=== PATIENT | male | born 1995 | race Caucasian/White ===

== ENCOUNTER 2017-09-13 21:46 | Inpatient (IN) | payer OTHER ==
[2017-09-13] MEDS ORDERED: Sodium Chloride 0.9% 2.5 ML Syringe FLUSH PRN (22:05)
[2017-09-13] MEDS ORDERED: Sodium Chloride 0.9% 10 ML Syringe FLUSH PRN (22:05)
[2017-09-13] MEDS ORDERED: Sodium Chloride 0.9% 1,000 ML IV ONE ×2 (22:06→23:20)
[2017-09-13] MEDS ORDERED: Acetaminophen 325 MG Tab PO ONE (22:13)
--- NOTE | 2017-09-13 22:13 | EDM.PDOC ---
ED HPI GENERAL MEDICAL PROBLEM - General Chief Complaint: Neuro Symptoms/Deficits Stated Complaint: SEIZURE Time Seen by Provider: 09/13/17 22:00 - History of Present Illness INITIAL COMMENTS - FREE TEXT/NARRATIVE: HISTORY AND PHYSICAL: History of present illness: The patient is a 22-year-old male with a history of a seizure about 2 years ago for which she followed with a neurologist and had an EEG that was negative and he was on no medication and who presents via EMS after having a seizure. According to the ykpefxq-mq-oqa who witnessed the events, the patient was sitting on a sofa or in the hjpyqte-ia-bkg's apartment and he heard a noise and the patient had knocked his head on the wall behind the sofa and seemed very stiff and throughout his body. He did not fall to the ground. At that point police were knocking at the apartment door and they were looking for the patient independently of the seizure events. The zmdktya-te-vuh returned and said that he had rolled off the very low loveseat sofa onto the ground. He did not lose bowel or bladder. Patient has no recall of this evening's events and says the last thing that he can remember is some events earlier this afternoon. He denies any neck or back pain but does have a headache. He has no extremity complaints no abdominal complaints he is not nauseated and has not vomited. He has no chest pain or shortness of breath. Prior to these events he states he had no systemic issues and he did not feel any aura or any prodrome of symptomatology. Currently in the ED the patient is very quiet with his exam and not very forthcoming with my evaluation. According to EMS police were on scene due to possible drug allegations. The patient denies any recent drug use on my evaluation. Please see up below information that is additional to this history of present illness that the ofulxkl-ps-bdq provided to me privately after my initial evaluation. Review of systems: As per history of present illness and below otherwise all systems reviewed and negative. Past medical history: As per history of present illness and as reviewed below otherwise noncontributory. Surgical history: As per history of present illness and as reviewed below otherwise noncontributory. Social history: No reported history of drug or alcohol abuse. Family history: As per history of present illness and as reviewed below otherwise noncontributory. Physical exam: General: Well-developed well-nourished thin man who is nontoxic and vital signs are noted by me. HEENT: Atraumatic, normocephalic, pupils reactive, negative for conjunctival pallor or scleral icterus, mucous membranes moist, throat clear, neck supple, nontender, trachea midline. There is no significant facial or scalp trauma no midline step-offs tenderness defects of the cervical spine. There are tongue abrasions more on the right but there is no active bleeding. There is no cervical adenopathy or nuchal rigidity Lungs: Clear to auscultation, breath sounds equal bilaterally, chest nontender. Heart: S1S2, regular rate and rhythm no overt murmurs Abdomen: Soft, nondistended, mild diffuse generalized tenderness without rebound or guarding Negative for masses or hepatosplenomegaly. Negative for costovertebral tenderness. Pelvis: Stable nontender. Genitourinary: Deferred. Rectal: Deferred. Extremities: Atraumatic, full range of motion without any defects or deficits and there is no soft tissue injuries witnessed as abrasions ecchymosis or lacerations, negative for cords or calf pain. Neurovascular unremarkable. Neuro: Awake, alert, oriented. Cranial nerves II through XII unremarkable. Cerebellum unremarkable. Motor and sensory unremarkable throughout. Exam nonfocal. Speech is intact and the patient is aware of recent events. Back: There are no midline step-offs tenderness defects of the thoracic or lumbar spine no posterior rib or posterior pelvis tenderness and no soft tissue injuries are seen. Diagnostics: EKG CBC CMP EtOH prolactin TSH UA UDS magnesium level CT scan of the head amylase and lipase CT scan of the abdomen and pelvis Therapeutics: IV IV fluids seizure precautions Tylenol Zofran After my initial evaluation with the patient and speaking with the brother-in- law in the room he asked to speak with me privately. He tells me that they drove from [place] today to [place] and throughout the day the patient did not eat any food but was drinking water and Gatorade but vomited multiple times. He never complained of any abdominal pain or headache. When they arrived at the apartment complex the htnqqnh-nl-tnp told the patient that the place they were staying is on the third floor and they were carrying their bags up when the uvuvehf-yb-pcs says he turned around and the patient was missing. The jsmrikh-ni-mtn found him in another apartment complex building on the second floor and he had entered another persons unit without permission. This is why the police officers were on scene at the time of the patient's seizure as they were called by other people for the patient wandering around the building. The qgbpahc-zg-vuk tells me that earlier this morning he seemed somewhat confused and not quite himself and he and his had some concerns potentially the patient was using drugs. The adczixd-ce-yqt's telling me that the patient's demeanor and interaction with me currently i.e. being withdrawn not very forthcoming and somewhat odd in general is not his typical baseline personality. The patient was also noted in the ED to be talking to another patient in room 6. He does not know the patient in room 6. The rtcoolp-ne-nte also told me that he found a urine specimen in the patient's back that is fake urine that is used to pass a drug screen. He is not sure what the meaning of this is. I told the family that we would continue our workup and I will give him some Zofran along with IV fluids. When I was speaking to the patient about his lab testing and encouraging him to give me a urine sample and light of the CPK BUN and creatinine values., He admits to me that he has been vomiting all day and when I ask him again about abdominal pain he says that it doesn't feel normal but there is no specific area of discomfort and is more a generalized thing. He cannot tell me if this started before or after the vomiting. On palpation the patient has diffuse tenderness with some voluntary guarding but no involuntary guarding and no rebound. His exam seems a little worse than my earlier evaluation. He is not very open in my dialogue about this pain and is not very relaxed for my exam. I will do CT scan of the abdomen and pelvis. 0045: Patient has been sleeping in the ED and has not had any vomiting. I discussed with him the testing results including the most recent CT scan of the abdomen and pelvis. In light of his lab values and an unclear sequence of events I will discuss with the hospitalist admission for observation. The patient is comfortable with this care plan 0055: Case was discussed with our hospitalist Dr Kerns; she agrees with observation admission. She is aware about my concerns about the patient's vomiting all day and confusion prior to the seizure as documented above and told to me by the qdexolo-om-plz. The patient has been receiving IV fluids here and has been sleeping. He has not had any vomiting. Impression: Episode of abnormal motor activity rule out Seizure, vomiting with dehydration with elevated renal function and mild rhabdomyolysis; history of confusion improving Definitive disposition and diagnosis as appropriate pending reevaluation and review of above. denies pain Pain Score (Numeric/FACES): 0 - Related Data Allergies Allergy/AdvReac Type Severity Reaction Status Date / Time No Known Allergies Allergy Verified 09/13/17 21:55 Home Meds: Home Meds . [No Known Home Meds] 09/13/17 [History] Past Medical History Neurological History: Reports: Seizure Social & Family History - Family History Family Medical History: Noncontributory - Tobacco Use Smoking Status *Q: Never Smoker - Recreational Drug Use Recreational Drug Use: No ED ROS GENERAL - Review of Systems Review Of Systems: ROS reveals no pertinent complaints other than HPI. ED EXAM, GENERAL - Physical Exam Exam: See Below (See dictation) Course - Vital Signs Last Recorded V/S: Last Vital Signs Temp 37.2 C 09/14/17 00:47 Pulse 88 09/14/17 00:47 Resp 18 09/14/17 00:47 BP 115/57 L 09/14/17 00:47 Pulse Ox 97 09/14/17 00:47 - Orders/Labs/Meds Orders: Active Orders 24 hr Category Date Time Status Patient Status [ADT] Stat ADT 09/14/17 00:58 Ordered Cardiac Monitoring [RC] . DIRECTED Care 09/13/17 22:05 Active EKG Documentation Completion [RC] STAT Care 09/13/17 22:05 Active Oxygen Therapy, ED [RC] ASDIRECTED Care 09/13/17 22:05 Active Pulse Oximetry [RC] ASDIRECTED Care 09/13/17 22:05 Active Abdomen Pelvis w Cont [CT] Stat Exams 09/13/17 23:10 Taken Head wo Cont [CT] Stat Exams 09/13/17 22:06 Taken DRUG SCREEN, URINE [URCHEM] Stat Lab 09/13/17 23:18 Ordered UA W/MICROSCOPIC [URIN] Stat Lab 09/13/17 23:15 Ordered Sodium Chloride 0.9% [Saline Flush] Med 09/13/17 22:05 Active 10 ml FLUSH ASDIRECTED PRN Sodium Chloride 0.9% [Saline Flush] Med 09/13/17 22:05 Active 2.5 ml FLUSH ASDIRECTED PRN Saline Lock Insert [OM.PC] Stat Oth 09/13/17 22:05 Ordered Medication Orders Sodium Chloride (Saline Flush) 10 ml FLUSH ASDIRECTED PRN PRN Reason: Keep Vein Open Sodium Chloride (Saline Flush) 2.5 ml FLUSH ASDIRECTED PRN PRN Reason: Keep Vein Open Labs: Laboratory Tests 09/13/17 09/13/17 09/13/17 Range/Units 22:16 22:16 22:16 WBC 17.52 H (4.0-11.0) K/uL RBC 4.70 (4.50-5.90) M/uL Hgb 14.1 (13.0-17.0) g/dL Hct 40.7 (38.0-50.0) % MCV 86.6 (80.0-98.0) fL MCH 30.0 (27.0-32.0) pg MCHC 34.6 (31.0-37.0) g/dL RDW Std Deviation 37.2 (28.0-62.0) fl RDW Coeff of Elizabeth 12 (11.0-15.0) % Plt Count 197 (150-400) K/uL MPV 10.60 (7.40-12.00) fL Add Manual Diff YES Neutrophils % (Manual) 83 H (48.0-80.0) % Band Neutrophils % 9 % Lymphocytes % (Manual) 1 L (16.0-40.0) % Monocytes % (Manual) 6 (0.0-15.0) % Basophils % (Manual) 1 (0.0-1.5) % Nucleated RBC % 0.0 /100WBC Absolute Seg Neuts 14.5 H (1.4-5.7) Band Neutrophils # 1.6 Lymphocytes # (Manual) 0.2 L (0.6-2.4) Monocytes # (Manual) 1.1 H (0.0-0.8) Basophils # (Manual) 0.2 H (0.0-0.1) Nucleated RBCs # 0 K/uL Lactate (0.20-2.00) mmol/L Sodium 138 (136-148) mmol/L Potassium 4.0 (3.5-5.1) mmol/L Chloride 101 (98-107) mmol/L Carbon Dioxide 22.8 (21.0-32.0) mmol/L BUN 19 H (7.0-18.0) mg/dL Creatinine 2.1 H (0.8-1.3) mg/dL Est Cr Clr Drug Dosing 45.24 mL/min Estimated GFR (MDRD) 39.0 ml/min Glucose 155 H (74-106) mg/dL Calcium 8.8 (8.5-10.1) mg/dL Magnesium 1.7 L (1.8-2.4) mg/dL Total Bilirubin 0.4 (0.2-1.0) mg/dL AST 36 (15-37) IU/L ALT 26 (14-63) IU/L Alkaline Phosphatase 61 (46-116) U/L Creatine Kinase 623 H (26-308) U/L Total Protein 7.0 (6.4-8.2) g/dL Albumin 4.1 (3.4-5.0) g/dL Globulin 2.9 (2.0-3.5) g/dL Albumin/Globulin Ratio 1.4 (1.3-2.8) Amylase 63 (25-115) U/L Lipase 88 (73-393) U/L TSH 3rd Generation 0.42 (0.36-3.74) uIU/mL Prolactin 7 (1-23) ng/mL Urine Color Urine Appearance Urine pH (5.0-8.0) Ur Specific Sumner (1.001-1.035) Urine Protein (NEGATIVE) mg/dL Urine Glucose (UA) (NEGATIVE) mg/dL Urine Ketones (NEGATIVE) mg/dL Urine Occult Blood (NEGATIVE) Urine Nitrite (NEGATIVE) Urine Bilirubin (NEGATIVE) Urine Urobilinogen (<2.0) EU/dL Ur Leukocyte Esterase (NEGATIVE) Urine RBC (0-2/HPF) Urine WBC (0-5/HPF) Ur Epithelial Cells (NONE-FEW) Amorphous Sediment (NEGATIVE) Urine Bacteria (NEGATIVE) Urine Mucus (NONE-MOD) Urine Opiates Screen (NEGATIVE) Ur Oxycodone Screen (NEGATIVE) Urine Methadone Screen (NEGATIVE) Ur Barbiturates Screen (NEGATIVE) Ur Phencyclidine Scrn (NEGATIVE) Ur Amphetamine Screen (NEGATIVE) U Methamphetamines Scrn (NEGATIVE) U Benzodiazepines Scrn (NEGATIVE) U Cocaine Metab Screen (NEGATIVE) U Marijuana (THC) Screen (NEGATIVE) Ethyl Alcohol <3 mg/dL 09/13/17 09/13/17 09/13/17 Range/Units 22:53 23:15 23:18 WBC (4.0-11.0) K/uL RBC (4.50-5.90) M/uL Hgb (13.0-17.0) g/dL Hct (38.0-50.0) % MCV (80.0-98.0) fL MCH (27.0-32.0) pg MCHC (31.0-37.0) g/dL RDW Std Deviation (28.0-62.0) fl RDW Coeff of Elizabeth (11.0-15.0) % Plt Count (150-400) K/uL MPV (7.40-12.00) fL Add Manual Diff Neutrophils % (Manual) (48.0-80.0) % Band Neutrophils % % Lymphocytes % (Manual) (16.0-40.0) % Monocytes % (Manual) (0.0-15.0) % Basophils % (Manual) (0.0-1.5) % Nucleated RBC % /100WBC Absolute Seg Neuts (1.4-5.7) Band Neutrophils # Lymphocytes # (Manual) (0.6-2.4) Monocytes # (Manual) (0.0-0.8) Basophils # (Manual) (0.0-0.1) Nucleated RBCs # K/uL Lactate 2.4 H (0.20-2.00) mmol/L Sodium (136-148) mmol/L Potassium (3.5-5.1) mmol/L Chloride (98-107) mmol/L Carbon Dioxide (21.0-32.0) mmol/L BUN (7.0-18.0) mg/dL Creatinine (0.8-1.3) mg/dL Est Cr Clr Drug Dosing mL/min Estimated GFR (MDRD) ml/min Glucose (74-106) mg/dL Calcium (8.5-10.1) mg/dL Magnesium (1.8-2.4) mg/dL Total Bilirubin (0.2-1.0) mg/dL AST (15-37) IU/L ALT (14-63) IU/L Alkaline Phosphatase (46-116) U/L Creatine Kinase (26-308) U/L Total Protein (6.4-8.2) g/dL Albumin (3.4-5.0) g/dL Globulin (2.0-3.5) g/dL Albumin/Globulin Ratio (1.3-2.8) Amylase (25-115) U/L Lipase (73-393) U/L TSH 3rd Generation (0.36-3.74) uIU/mL Prolactin (1-23) ng/mL Urine Color YELLOW Urine Appearance CLEAR Urine pH 5.5 (5.0-8.0) Ur Specific Sumner 1.015 (1.001-1.035) Urine Protein TRACE (NEGATIVE) mg/dL Urine Glucose (UA) NEGATIVE (NEGATIVE) mg/dL Urine Ketones NEGATIVE (NEGATIVE) mg/dL Urine Occult Blood TRACE-INTACT (NEGATIVE) Urine Nitrite NEGATIVE (NEGATIVE) Urine Bilirubin NEGATIVE (NEGATIVE) Urine Urobilinogen 0.2 (<2.0) EU/dL Ur Leukocyte Esterase NEGATIVE (NEGATIVE) Urine RBC 0-1 (0-2/HPF) Urine WBC 0-2 (0-5/HPF) Ur Epithelial Cells RARE (NONE-FEW) Amorphous Sediment LIGHT (NEGATIVE) Urine Bacteria FEW (NEGATIVE) Urine Mucus LIGHT (NONE-MOD) Urine Opiates Screen NEGATIVE (NEGATIVE) Ur Oxycodone Screen NEGATIVE (NEGATIVE) Urine Methadone Screen NEGATIVE (NEGATIVE) Ur Barbiturates Screen NEGATIVE (NEGATIVE) Ur Phencyclidine Scrn NEGATIVE (NEGATIVE) Ur Amphetamine Screen NEGATIVE (NEGATIVE) U Methamphetamines Scrn NEGATIVE (NEGATIVE) U Benzodiazepines Scrn NEGATIVE (NEGATIVE) U Cocaine Metab Screen NEGATIVE (NEGATIVE) U Marijuana (THC) Screen NEGATIVE (NEGATIVE) Ethyl Alcohol mg/dL Meds: Medications Generic Name Dose Route Start Last Admin Trade Name Freq PRN Reason Stop Dose Admin Sodium Chloride 10 ml 09/13/17 22:05 Saline Flush FLUSH ASDIRECTED PRN Keep Vein Open Sodium Chloride 2.5 ml 09/13/17 22:05 Saline Flush FLUSH ASDIRECTED PRN Keep Vein Open Discontinued Medications Generic Name Dose Route Start Last Admin Trade Name Freq PRN Reason Stop Dose Admin Acetaminophen 650 mg 09/13/17 22:13 09/13/17 22:24 Tylenol PO 09/13/17 22:14 650 mg NOW ONE Administration Sodium Chloride 1,000 mls @ 999 mls/hr 09/13/17 22:06 09/13/17 22:15 Normal Saline IV 09/13/17 23:06 999 mls/hr STAT ONE Administration Sodium Chloride 1,000 mls @ 999 mls/hr 09/13/17 23:20 09/13/17 23:21 Normal Saline IV 09/14/17 00:20 999 mls/hr .Bolus ONE Administration Iopamidol 50 ml 09/13/17 23:54 09/13/17 23:55 Isovue-300 (61%) IVPUSH 09/13/17 23:55 50 ml ONETIME ONE Administration Ondansetron HCl 4 mg 09/13/17 22:27 09/13/17 22:32 Zofran IVPUSH 09/13/17 22:28 4 mg ONETIME ONE Administration Departure - Departure Time of Disposition: 01:00 Disposition: Refer to Observation Condition: Good Clinical Impression: Dehydration, Abnormal renal function, Abnormal motor activity Vomiting Qualifiers: Vomiting type: unspecified Vomiting Intractability: non-intractable Nausea presence: with nausea Qualified Code(s): R11.2 - Nausea with vomiting, unspecified - Discharge Information Referrals: PCP,None [Primary Care Provider] - Forms: ED Department Discharge - My Orders Last 24 Hours: My Active Orders 09/13/17 22:05 Cardiac Monitoring [RC] . DIRECTED EKG Documentation Completion [RC] STAT Oxygen Therapy, ED [RC] ASDIRECTED Pulse Oximetry [RC] ASDIRECTED Sodium Chloride 0.9% [Saline Flush] 10 ml FLUSH ASDIRECTED PRN Sodium Chloride 0.9% [Saline Flush] 2.5 ml FLUSH ASDIRECTED PRN Saline Lock Insert [OM.PC] Stat 09/13/17 22:06 Head wo Cont [CT] Stat 09/13/17 23:10 Abdomen Pelvis w Cont [CT] Stat 09/13/17 23:15 UA W/MICROSCOPIC [URIN] Stat 09/13/17 23:18 DRUG SCREEN, URINE [URCHEM] Stat 09/14/17 00:58 Patient Status [ADT] Stat - Assessment/Plan Last 24 Hours: My Active Orders 09/13/17 22:05 Cardiac Monitoring [RC] . DIRECTED EKG Documentation Completion [RC] STAT Oxygen Therapy, ED [RC] ASDIRECTED Pulse Oximetry [RC] ASDIRECTED Sodium Chloride 0.9% [Saline Flush] 10 ml FLUSH ASDIRECTED PRN Sodium Chloride 0.9% [Saline Flush] 2.5 ml FLUSH ASDIRECTED PRN Saline Lock Insert [OM.PC] Stat 09/13/17 22:06 Head wo Cont [CT] Stat 09/13/17 23:10 Abdomen Pelvis w Cont [CT] Stat 09/13/17 23:15 UA W/MICROSCOPIC [URIN] Stat 09/13/17 23:18 DRUG SCREEN, URINE [URCHEM] Stat 09/14/17 00:58 Patient Status [ADT] Stat
[2017-09-13] MEDS ORDERED: Ondansetron 4 MG/2 ML SDV IVPUSH ONE (22:27)
[2017-09-13 22:53] LABS: CHLORIDE,CL 101 mmol/L (98-107); SODIUM,NA 138 mmol/L (136-148)
[2017-09-13] MEDS ORDERED: Iopamidol 612 MG/ML 50 ML SDV IVPUSH ONE (23:54)
[2017-09-14] MEDS ORDERED: Magnesium Sulfate/Water 2 GM in Premix Bag 1 BAG IV ONE (02:03)
[2017-09-14] MEDS ORDERED: Sodium Chloride 0.9% 1,000 ML IV SCH (02:15)
[2017-09-14] MEDS ORDERED: levETIRAcetam 500 MG Tab PO SCH (09:30)
--- NOTE | 2017-09-14 09:34 | PCM.HP ---
<Tan Reyes - Last Filed: 09/14/17 09:24> H&P History of Present Illness - General Date of Service: 09/14/17 Admit Problem/Dx: Admission Diagnosis/Problem Admission Diagnosis/Problem Dehydration Source of Information: Patient History Limitations: Reports: Other (poor historian) - History of Present Illness Initial Comments - Free Text/Narative: This is a 22M with a history of possible seizure like activity in the past who was brought in to the ER last night after he was witnessed to be having what is thought to be a seizure. As per the patient, he states that for the past 2 days , he has not felt like he is himself. He thinks that his judgement has been off , and he wasn't talking to others the way he normally does. His brother in law thinks he wasn't exact his normal way either, such as talking to strangers. He was also witnessed falling over off his couch and having strong tone and being unresponsive. He's unaware of how long this was going on for. He does tell me his confusion has now subsided. The patient tells me that he has had these "episodes" twice before, once in 2011 and once two years ago. He was evaluated at an outside hospital for this in the past where an EEG was done and was negative. The last time he had this, he suffered a fall resulting in a shoulder injury requiring surgery. He has never been on antiseizure medications. Over the past month, he tells me that his stress level has been high. He has moved here from [place], [place] to start a new job and this has been stressful for him. In more detail, he tells me that he has normally been smoking marijuana to help deal with his stress up until this month. He stopped smoking because he doesn't want a positive drug screen for his new job. He hasn't actually started this job yet as today was supposed to be his first day. In terms of his anxiety , he tells me that there are no specific triggers aside from this new job, he has a good relationship with his family and friends. He has no thoughts of hurting himself or others. ER Course: CT Head - unremarkable CT Abdomen/Pelvis - postinflammatory pulmonary nodules, possible pyelonephritis. (The patient denies any fever, CVA tenderness, or dysuria - UA is unremarkable) Drug screen - negative CK - 623 Prolactin - 7 CBC - WBC 16k denies pain Pain Score (Numeric/FACES): 0 - Related Data Allergies/Adverse Reactions: Allergies Allergy/AdvReac Type Severity Reaction Status Date / Time No Known Allergies Allergy Verified 09/13/17 21:55 Home Medications: Home Meds . [No Known Home Meds] 09/13/17 [History] Past Medical History Neurological History: Reports: Seizure Social & Family History - Family History Family Medical History: Noncontributory - Tobacco Use Smoking Status *Q: Never Smoker Second Hand Smoke Exposure: Yes - Caffeine Use Caffeine Use: Reports: Coffee, Energy Drinks - Recreational Drug Use Recreational Drug Use: No H&P Review of Systems - Review of Systems: Review Of Systems: See Below General: Reports: No Symptoms HEENT: Reports: Headaches (mild headache) Pulmonary: Reports: No Symptoms Cardiovascular: Reports: No Symptoms Gastrointestinal: Reports: No Symptoms Genitourinary: Reports: No Symptoms Musculoskeletal: Reports: No Symptoms Skin: Reports: No Symptoms Psychiatric: Reports: Anxiety Neurological: Reports: Other (see hpi) Hematologic/Lymphatic: Reports: No Symptoms Immunologic: Reports: No Symptoms Exam - Exam Exam: See Below - Vital Signs Vital Signs: Last Vital Signs Temp 36.6 C 09/14/17 04:45 Pulse 76 09/14/17 04:45 Resp 18 09/14/17 04:45 BP 126/75 09/14/17 04:45 Pulse Ox 96 09/14/17 01:38 Weight: 156 lb 3.2 oz - Exam General: Alert, Oriented, 4 HEENT: PERRLA, Hearing Intact, Mucosa Moist & [place], Nares Patent, Normal Nasal Septum, Posterior Pharynx Clear, Conjunctiva Clear, EOMI, EACs Clear, TMs Clear Neck: Supple, Trachea Midline, 2 Lungs: Clear to Auscultation, Normal Respiratory Effort Cardiovascular: Regular Rate, Regular Rhythm GI/Abdominal Exam: Normal Bowel Sounds, Soft, Non-Tender, No Organomegaly, No Distention, No Abnormal Bruit, No Mass, Pelvis Stable Back Exam: Normal Inspection, Full Range of Motion, NT Extremities: Normal Inspection, Normal Range of Motion, Non-Tender, No Pedal Edema, Normal Capillary Refill Skin: Warm, Dry, Intact Neurological: Cranial Nerves Intact, Reflexes Equal Bilateral Neuro Extensive - Mental Status: Alert, Oriented x3, Normal Mood/Affect, Normal Cognition Neuro Extensive - Motor, Sensory, Reflexes: CN II-XII Intact, Normal Gait, Normal Reflexes Psychiatric: Alert, Normal Affect, Normal Mood - Patient Data Lab Results Last 24 hrs: Laboratory Results - last 24 hr 09/13/17 09/13/17 09/13/17 Range/Units 22:16 22:16 22:16 WBC 17.52 H (4.0-11.0) K/uL RBC 4.70 (4.50-5.90) M/uL Hgb 14.1 (13.0-17.0) g/dL Hct 40.7 (38.0-50.0) % MCV 86.6 (80.0-98.0) fL MCH 30.0 (27.0-32.0) pg MCHC 34.6 (31.0-37.0) g/dL RDW Std Deviation 37.2 (28.0-62.0) fl RDW Coeff of Elizabeth 12 (11.0-15.0) % Plt Count 197 (150-400) K/uL MPV 10.60 (7.40-12.00) fL Neut % (Auto) (48.0-80.0) % Lymph % (Auto) (16.0-40.0) % Warren % (Auto) (0.0-15.0) % Eos % (Auto) (0.0-7.0) % Baso % (Auto) (0.0-1.5) % Neut # (Auto) (1.4-5.7) K/uL Lymph # (Auto) (0.6-2.4) K/uL Warren # (Auto) (0.0-0.8) K/uL Eos # (Auto) (0.0-0.7) K/uL Baso # (Auto) (0.0-0.1) K/uL Add Manual Diff YES Neutrophils % (Manual) 83 H (48.0-80.0) % Band Neutrophils % 9 % Lymphocytes % (Manual) 1 L (16.0-40.0) % Monocytes % (Manual) 6 (0.0-15.0) % Basophils % (Manual) 1 (0.0-1.5) % Nucleated RBC % 0.0 /100WBC Absolute Seg Neuts 14.5 H (1.4-5.7) Band Neutrophils # 1.6 Lymphocytes # (Manual) 0.2 L (0.6-2.4) Monocytes # (Manual) 1.1 H (0.0-0.8) Basophils # (Manual) 0.2 H (0.0-0.1) Nucleated RBCs # 0 K/uL Lactate (0.20-2.00) mmol/L Sodium 138 (136-148) mmol/L Potassium 4.0 (3.5-5.1) mmol/L Chloride 101 (98-107) mmol/L Carbon Dioxide 22.8 (21.0-32.0) mmol/L BUN 19 H (7.0-18.0) mg/dL Creatinine 2.1 H (0.8-1.3) mg/dL Est Cr Clr Drug Dosing 45.24 mL/min Estimated GFR (MDRD) 39.0 ml/min Glucose 155 H (74-106) mg/dL Calcium 8.8 (8.5-10.1) mg/dL Magnesium 1.7 L (1.8-2.4) mg/dL Total Bilirubin 0.4 (0.2-1.0) mg/dL AST 36 (15-37) IU/L ALT 26 (14-63) IU/L Alkaline Phosphatase 61 (46-116) U/L Creatine Kinase 623 H (26-308) U/L Total Protein 7.0 (6.4-8.2) g/dL Albumin 4.1 (3.4-5.0) g/dL Globulin 2.9 (2.0-3.5) g/dL Albumin/Globulin Ratio 1.4 (1.3-2.8) Amylase 63 (25-115) U/L Lipase 88 (73-393) U/L TSH 3rd Generation 0.42 (0.36-3.74) uIU/mL Prolactin 7 (1-23) ng/mL Urine Color Urine Appearance Urine pH (5.0-8.0) Ur Specific [place] (1.001-1.035) Urine Protein (NEGATIVE) mg/dL Urine Glucose (UA) (NEGATIVE) mg/dL Urine Ketones (NEGATIVE) mg/dL Urine Occult Blood (NEGATIVE) Urine Nitrite (NEGATIVE) Urine Bilirubin (NEGATIVE) Urine Urobilinogen (<2.0) EU/dL Ur Leukocyte Esterase (NEGATIVE) Urine RBC (0-2/HPF) Urine WBC (0-5/HPF) Ur Epithelial Cells (NONE-FEW) Amorphous Sediment (NEGATIVE) Urine Bacteria (NEGATIVE) Urine Mucus (NONE-MOD) Urine Opiates Screen (NEGATIVE) Ur Oxycodone Screen (NEGATIVE) Urine Methadone Screen (NEGATIVE) Ur Barbiturates Screen (NEGATIVE) Ur Phencyclidine Scrn (NEGATIVE) Ur Amphetamine Screen (NEGATIVE) U Methamphetamines Scrn (NEGATIVE) U Benzodiazepines Scrn (NEGATIVE) U Cocaine Metab Screen (NEGATIVE) U Marijuana (THC) Screen (NEGATIVE) Ethyl Alcohol <3 mg/dL 09/13/17 09/13/17 09/13/17 Range/Units 22:53 23:15 23:18 WBC (4.0-11.0) K/uL RBC (4.50-5.90) M/uL Hgb (13.0-17.0) g/dL Hct (38.0-50.0) % MCV (80.0-98.0) fL MCH (27.0-32.0) pg MCHC (31.0-37.0) g/dL RDW Std Deviation (28.0-62.0) fl RDW Coeff of Elizabeth (11.0-15.0) % Plt Count (150-400) K/uL MPV (7.40-12.00) fL Neut % (Auto) (48.0-80.0) % Lymph % (Auto) (16.0-40.0) % Warren % (Auto) (0.0-15.0) % Eos % (Auto) (0.0-7.0) % Baso % (Auto) (0.0-1.5) % Neut # (Auto) (1.4-5.7) K/uL Lymph # (Auto) (0.6-2.4) K/uL [place] # (Auto) (0.0-0.8) K/uL Eos # (Auto) (0.0-0.7) K/uL Baso # (Auto) (0.0-0.1) K/uL Add Manual Diff Neutrophils % (Manual) (48.0-80.0) % Band Neutrophils % % Lymphocytes % (Manual) (16.0-40.0) % Monocytes % (Manual) (0.0-15.0) % Basophils % (Manual) (0.0-1.5) % Nucleated RBC % /100WBC Absolute Seg Neuts (1.4-5.7) Band Neutrophils # Lymphocytes # (Manual) (0.6-2.4) Monocytes # (Manual) (0.0-0.8) Basophils # (Manual) (0.0-0.1) Nucleated RBCs # K/uL Lactate 2.4 H (0.20-2.00) mmol/L Sodium (136-148) mmol/L Potassium (3.5-5.1) mmol/L Chloride (98-107) mmol/L Carbon Dioxide (21.0-32.0) mmol/L BUN (7.0-18.0) mg/dL Creatinine (0.8-1.3) mg/dL Est Cr Clr Drug Dosing mL/min Estimated GFR (MDRD) ml/min Glucose (74-106) mg/dL Calcium (8.5-10.1) mg/dL Magnesium (1.8-2.4) mg/dL Total Bilirubin (0.2-1.0) mg/dL AST (15-37) IU/L ALT (14-63) IU/L Alkaline Phosphatase (46-116) U/L Creatine Kinase (26-308) U/L Total Protein (6.4-8.2) g/dL Albumin (3.4-5.0) g/dL Globulin (2.0-3.5) g/dL Albumin/Globulin Ratio (1.3-2.8) Amylase (25-115) U/L Lipase (73-393) U/L TSH 3rd Generation (0.36-3.74) uIU/mL Prolactin (1-23) ng/mL Urine Color YELLOW Urine Appearance CLEAR Urine pH 5.5 (5.0-8.0) Ur Specific [place] 1.015 (1.001-1.035) Urine Protein TRACE (NEGATIVE) mg/dL Urine Glucose (UA) NEGATIVE (NEGATIVE) mg/dL Urine Ketones NEGATIVE (NEGATIVE) mg/dL Urine Occult Blood TRACE-INTACT (NEGATIVE) Urine Nitrite NEGATIVE (NEGATIVE) Urine Bilirubin NEGATIVE (NEGATIVE) Urine Urobilinogen 0.2 (<2.0) EU/dL Ur Leukocyte Esterase NEGATIVE (NEGATIVE) Urine RBC 0-1 (0-2/HPF) Urine WBC 0-2 (0-5/HPF) Ur Epithelial Cells RARE (NONE-FEW) Amorphous Sediment LIGHT (NEGATIVE) Urine Bacteria FEW (NEGATIVE) Urine Mucus LIGHT (NONE-MOD) Urine Opiates Screen NEGATIVE (NEGATIVE) Ur Oxycodone Screen NEGATIVE (NEGATIVE) Urine Methadone Screen NEGATIVE (NEGATIVE) Ur Barbiturates Screen NEGATIVE (NEGATIVE) Ur Phencyclidine Scrn NEGATIVE (NEGATIVE) Ur Amphetamine Screen NEGATIVE (NEGATIVE) U Methamphetamines Scrn NEGATIVE (NEGATIVE) U Benzodiazepines Scrn NEGATIVE (NEGATIVE) U Cocaine Metab Screen NEGATIVE (NEGATIVE) U Marijuana (THC) Screen NEGATIVE (NEGATIVE) Ethyl Alcohol mg/dL 09/14/17 09/14/17 09/14/17 Range/Units 05:00 05:00 05:00 WBC 16.03 H (4.0-11.0) K/uL RBC 4.17 L (4.50-5.90) M/uL Hgb 12.5 L (13.0-17.0) g/dL Hct 36.3 L (38.0-50.0) % MCV 87.1 (80.0-98.0) fL MCH 30.0 (27.0-32.0) pg MCHC 34.4 (31.0-37.0) g/dL RDW Std Deviation 37.2 (28.0-62.0) fl RDW Coeff of [place] 12 (11.0-15.0) % Plt Count 187 (150-400) K/uL MPV 9.70 (7.40-12.00) fL Neut % (Auto) 85.4 H (48.0-80.0) % Lymph % (Auto) 7.9 L (16.0-40.0) % [place] % (Auto) 6.6 (0.0-15.0) % Eos % (Auto) 0.0 (0.0-7.0) % Baso % (Auto) 0.1 (0.0-1.5) % Neut # (Auto) 13.7 H (1.4-5.7) K/uL Lymph # (Auto) 1.3 (0.6-2.4) K/uL [place] # (Auto) 1.1 H (0.0-0.8) K/uL Eos # (Auto) 0.0 (0.0-0.7) K/uL Baso # (Auto) 0.0 (0.0-0.1) K/uL Add Manual Diff Neutrophils % (Manual) (48.0-80.0) % Band Neutrophils % % Lymphocytes % (Manual) (16.0-40.0) % Monocytes % (Manual) (0.0-15.0) % Basophils % (Manual) (0.0-1.5) % Nucleated RBC % 0.0 /100WBC Absolute Seg Neuts (1.4-5.7) Band Neutrophils # Lymphocytes # (Manual) (0.6-2.4) Monocytes # (Manual) (0.0-0.8) Basophils # (Manual) (0.0-0.1) Nucleated RBCs # 0 K/uL Lactate 0.7 (0.20-2.00) mmol/L Sodium 139 (136-148) mmol/L Potassium 4.0 (3.5-5.1) mmol/L Chloride 104 (98-107) mmol/L Carbon Dioxide 25.2 (21.0-32.0) mmol/L BUN 17 (7.0-18.0) mg/dL Creatinine 1.8 H (0.8-1.3) mg/dL Est Cr Clr Drug Dosing 63.42 mL/min Estimated GFR (MDRD) 46.6 ml/min Glucose 117 H (74-106) mg/dL Calcium 8.1 L (8.5-10.1) mg/dL Magnesium 2.7 H (1.8-2.4) mg/dL Total Bilirubin (0.2-1.0) mg/dL AST (15-37) IU/L ALT (14-63) IU/L Alkaline Phosphatase (46-116) U/L Creatine Kinase (26-308) U/L Total Protein (6.4-8.2) g/dL Albumin (3.4-5.0) g/dL Globulin (2.0-3.5) g/dL Albumin/Globulin Ratio (1.3-2.8) Amylase (25-115) U/L Lipase (73-393) U/L TSH 3rd Generation (0.36-3.74) uIU/mL Prolactin (1-23) ng/mL Urine Color Urine Appearance Urine pH (5.0-8.0) Ur Specific [place] (1.001-1.035) Urine Protein (NEGATIVE) mg/dL Urine Glucose (UA) (NEGATIVE) mg/dL Urine Ketones (NEGATIVE) mg/dL Urine Occult Blood (NEGATIVE) Urine Nitrite (NEGATIVE) Urine Bilirubin (NEGATIVE) Urine Urobilinogen (<2.0) EU/dL Ur Leukocyte Esterase (NEGATIVE) Urine RBC (0-2/HPF) Urine WBC (0-5/HPF) Ur Epithelial Cells (NONE-FEW) Amorphous Sediment (NEGATIVE) Urine Bacteria (NEGATIVE) Urine Mucus (NONE-MOD) Urine Opiates Screen (NEGATIVE) Ur Oxycodone Screen (NEGATIVE) Urine Methadone Screen (NEGATIVE) Ur Barbiturates Screen (NEGATIVE) Ur Phencyclidine Scrn (NEGATIVE) Ur Amphetamine Screen (NEGATIVE) U Methamphetamines Scrn (NEGATIVE) U Benzodiazepines Scrn (NEGATIVE) U Cocaine Metab Screen (NEGATIVE) U Marijuana (THC) Screen (NEGATIVE) Ethyl Alcohol mg/dL Result Diagrams: 09/14/17 05:00 09/14/17 05:00 Problem List Initiated/Reviewed/Updated: Yes Orders Last 24hrs: Active Orders 24 hr Category Date Time Status Patient Status [ADT] Stat ADT 09/14/17 00:58 Active Cardiac Monitoring [RC] . DIRECTED Care 09/13/17 22:05 Active Regular Diet [DIET] Diet 09/14/17 Lunch Active Abdomen Pelvis w Cont [CT] Stat Exams 09/13/17 23:10 Taken Head wo Cont [CT] Stat Exams 09/13/17 22:06 Taken DRUG SCREEN, URINE [URCHEM] Stat Lab 09/13/17 23:18 Ordered UA W/MICROSCOPIC [URIN] Stat Lab 09/13/17 23:15 Ordered Sodium Chloride 0.9% [Normal Saline] 1,000 ml Med 09/14/17 02:15 Active IV ASDIRECTED Sodium Chloride 0.9% [Saline Flush] Med 09/13/17 22:05 Active 10 ml FLUSH ASDIRECTED PRN Sodium Chloride 0.9% [Saline Flush] Med 09/13/17 22:05 Active 2.5 ml FLUSH ASDIRECTED PRN levETIRAcetam [Keppra] Med 09/14/17 09:30 Ordered 500 mg PO BID Saline Lock Insert [OM.PC] Stat Oth 09/13/17 22:05 Ordered Medication Orders Sodium Chloride (Normal Saline) 1,000 mls @ 200 mls/hr IV ASDIRECTED WARREN Last Admin: 09/14/17 02:22 Dose: 70 mls/hr Sodium Chloride (Saline Flush) 10 ml FLUSH ASDIRECTED PRN PRN Reason: Keep Vein Open Sodium Chloride (Saline Flush) 2.5 ml FLUSH ASDIRECTED PRN PRN Reason: Keep Vein Open Assessment/Plan Comment:: Assessment: #1. Possible tonic-clonic seizure #2. History of seizure vs. pseudoseizure #3. Generalized anxiety disorder #4. Elevated CK #5. Leukocytosis #6. STUART Plan: #1. Admit to the floor for observation. Full code. Vital signs per floor routine. Regular diet #2. IVNS 200mL/h #3. Keppra 500mg PO BID #4. SCD for DVT prophylaxis Given the clinical presentation of the patient, I think that the leukocytosis is secondary to demargination after likely seizure activity rather than an infection. There is also no left shift. This also explains the CK (likely due to his tonic clonic activity). Prolactin not being elevated is of limited use given that at the time of presentation, it should be expected to be in a normal range. The prolonged postictal state also helps the diagnosis. I do plan on talking to the patient's brother in law who witnessed this episode for further description of the event. He should be seen by myself, PCP, and by neurology upon discharge. <Beryl Kerns - Last Filed: 09/14/17 18:54> H&P History of Present Illness - General Admit Problem/Dx: Admission Diagnosis/Problem Admission Diagnosis/Problem Dehydration Exam - Vital Signs Vital Signs: Last Vital Signs Temp 98.5 F 09/14/17 11:49 Pulse 63 09/14/17 11:49 Resp 20 09/14/17 11:49 BP 105/50 L 09/14/17 11:49 Pulse Ox 96 09/14/17 11:49 - Patient Data Lab Results Last 24 hrs: Laboratory Results - last 24 hr 09/13/17 09/13/17 09/13/17 Range/Units 22:16 22:16 22:16 WBC 17.52 H (4.0-11.0) K/uL RBC 4.70 (4.50-5.90) M/uL Hgb 14.1 (13.0-17.0) g/dL Hct 40.7 (38.0-50.0) % MCV 86.6 (80.0-98.0) fL MCH 30.0 (27.0-32.0) pg MCHC 34.6 (31.0-37.0) g/dL RDW Std Deviation 37.2 (28.0-62.0) fl RDW Coeff of [place] 12 (11.0-15.0) % Plt Count 197 (150-400) K/uL MPV 10.60 (7.40-12.00) fL Neut % (Auto) (48.0-80.0) % Lymph % (Auto) (16.0-40.0) % [place] % (Auto) (0.0-15.0) % Eos % (Auto) (0.0-7.0) % Baso % (Auto) (0.0-1.5) % Neut # (Auto) (1.4-5.7) K/uL Lymph # (Auto) (0.6-2.4) K/uL [place] # (Auto) (0.0-0.8) K/uL Eos # (Auto) (0.0-0.7) K/uL Baso # (Auto) (0.0-0.1) K/uL Add Manual Diff YES Neutrophils % (Manual) 83 H (48.0-80.0) % Band Neutrophils % 9 % Lymphocytes % (Manual) 1 L (16.0-40.0) % Monocytes % (Manual) 6 (0.0-15.0) % Basophils % (Manual) 1 (0.0-1.5) % Nucleated RBC % 0.0 /100WBC Absolute Seg Neuts 14.5 H (1.4-5.7) Band Neutrophils # 1.6 Lymphocytes # (Manual) 0.2 L (0.6-2.4) Monocytes # (Manual) 1.1 H (0.0-0.8) Basophils # (Manual) 0.2 H (0.0-0.1) Nucleated RBCs # 0 K/uL Lactate (0.20-2.00) mmol/L Sodium 138 (136-148) mmol/L Potassium 4.0 (3.5-5.1) mmol/L Chloride 101 (98-107) mmol/L Carbon Dioxide 22.8 (21.0-32.0) mmol/L BUN 19 H (7.0-18.0) mg/dL Creatinine 2.1 H (0.8-1.3) mg/dL Est Cr Clr Drug Dosing 45.24 mL/min Estimated GFR (MDRD) 39.0 ml/min Glucose 155 H (74-106) mg/dL Calcium 8.8 (8.5-10.1) mg/dL Magnesium 1.7 L (1.8-2.4) mg/dL Total Bilirubin 0.4 (0.2-1.0) mg/dL AST 36 (15-37) IU/L ALT 26 (14-63) IU/L Alkaline Phosphatase 61 (46-116) U/L Creatine Kinase 623 H (26-308) U/L Total Protein 7.0 (6.4-8.2) g/dL Albumin 4.1 (3.4-5.0) g/dL Globulin 2.9 (2.0-3.5) g/dL Albumin/Globulin Ratio 1.4 (1.3-2.8) Amylase 63 (25-115) U/L Lipase 88 (73-393) U/L TSH 3rd Generation 0.42 (0.36-3.74) uIU/mL Prolactin 7 (1-23) ng/mL Urine Color Urine Appearance Urine pH (5.0-8.0) Ur Specific [place] (1.001-1.035) Urine Protein (NEGATIVE) mg/dL Urine Glucose (UA) (NEGATIVE) mg/dL Urine Ketones (NEGATIVE) mg/dL Urine Occult Blood (NEGATIVE) Urine Nitrite (NEGATIVE) Urine Bilirubin (NEGATIVE) Urine Urobilinogen (<2.0) EU/dL Ur Leukocyte Esterase (NEGATIVE) Urine RBC (0-2/HPF) Urine WBC (0-5/HPF) Ur Epithelial Cells (NONE-FEW) Amorphous Sediment (NEGATIVE) Urine Bacteria (NEGATIVE) Urine Mucus (NONE-MOD) Urine Opiates Screen (NEGATIVE) Ur Oxycodone Screen (NEGATIVE) Urine Methadone Screen (NEGATIVE) Ur Barbiturates Screen (NEGATIVE) Ur Phencyclidine Scrn (NEGATIVE) Ur Amphetamine Screen (NEGATIVE) U Methamphetamines Scrn (NEGATIVE) U Benzodiazepines Scrn (NEGATIVE) U Cocaine Metab Screen (NEGATIVE) U Marijuana (THC) Screen (NEGATIVE) Ethyl Alcohol <3 mg/dL 09/13/17 09/13/17 09/13/17 Range/Units 22:53 23:15 23:18 WBC (4.0-11.0) K/uL RBC (4.50-5.90) M/uL Hgb (13.0-17.0) g/dL Hct (38.0-50.0) % MCV (80.0-98.0) fL MCH (27.0-32.0) pg MCHC (31.0-37.0) g/dL RDW Std Deviation (28.0-62.0) fl RDW Coeff of [place] (11.0-15.0) % Plt Count (150-400) K/uL MPV (7.40-12.00) fL Neut % (Auto) (48.0-80.0) % Lymph % (Auto) (16.0-40.0) % [place] % (Auto) (0.0-15.0) % Eos % (Auto) (0.0-7.0) % Baso % (Auto) (0.0-1.5) % Neut # (Auto) (1.4-5.7) K/uL Lymph # (Auto) (0.6-2.4) K/uL [place] # (Auto) (0.0-0.8) K/uL Eos # (Auto) (0.0-0.7) K/uL Baso # (Auto) (0.0-0.1) K/uL Add Manual Diff Neutrophils % (Manual) (48.0-80.0) % Band Neutrophils % % Lymphocytes % (Manual) (16.0-40.0) % Monocytes % (Manual) (0.0-15.0) % Basophils % (Manual) (0.0-1.5) % Nucleated RBC % /100WBC Absolute Seg Neuts (1.4-5.7) Band Neutrophils # Lymphocytes # (Manual) (0.6-2.4) Monocytes # (Manual) (0.0-0.8) Basophils # (Manual) (0.0-0.1) Nucleated RBCs # K/uL Lactate 2.4 H (0.20-2.00) mmol/L Sodium (136-148) mmol/L Potassium (3.5-5.1) mmol/L Chloride (98-107) mmol/L Carbon Dioxide (21.0-32.0) mmol/L BUN (7.0-18.0) mg/dL Creatinine (0.8-1.3) mg/dL Est Cr Clr Drug Dosing mL/min Estimated GFR (MDRD) ml/min Glucose (74-106) mg/dL Calcium (8.5-10.1) mg/dL Magnesium (1.8-2.4) mg/dL Total Bilirubin (0.2-1.0) mg/dL AST (15-37) IU/L ALT (14-63) IU/L Alkaline Phosphatase (46-116) U/L Creatine Kinase (26-308) U/L Total Protein (6.4-8.2) g/dL Albumin (3.4-5.0) g/dL Globulin (2.0-3.5) g/dL Albumin/Globulin Ratio (1.3-2.8) Amylase (25-115) U/L Lipase (73-393) U/L TSH 3rd Generation (0.36-3.74) uIU/mL Prolactin (1-23) ng/mL Urine Color YELLOW Urine Appearance CLEAR Urine pH 5.5 (5.0-8.0) Ur Specific [place] 1.015 (1.001-1.035) Urine Protein TRACE (NEGATIVE) mg/dL Urine Glucose (UA) NEGATIVE (NEGATIVE) mg/dL Urine Ketones NEGATIVE (NEGATIVE) mg/dL Urine Occult Blood TRACE-INTACT (NEGATIVE) Urine Nitrite NEGATIVE (NEGATIVE) Urine Bilirubin NEGATIVE (NEGATIVE) Urine Urobilinogen 0.2 (<2.0) EU/dL Ur Leukocyte Esterase NEGATIVE (NEGATIVE) Urine RBC 0-1 (0-2/HPF) Urine WBC 0-2 (0-5/HPF) Ur Epithelial Cells RARE (NONE-FEW) Amorphous Sediment LIGHT (NEGATIVE) Urine Bacteria FEW (NEGATIVE) Urine Mucus LIGHT (NONE-MOD) Urine Opiates Screen NEGATIVE (NEGATIVE) Ur Oxycodone Screen NEGATIVE (NEGATIVE) Urine Methadone Screen NEGATIVE (NEGATIVE) Ur Barbiturates Screen NEGATIVE (NEGATIVE) Ur Phencyclidine Scrn NEGATIVE (NEGATIVE) Ur Amphetamine Screen NEGATIVE (NEGATIVE) U Methamphetamines Scrn NEGATIVE (NEGATIVE) U Benzodiazepines Scrn NEGATIVE (NEGATIVE) U Cocaine Metab Screen NEGATIVE (NEGATIVE) U Marijuana (THC) Screen NEGATIVE (NEGATIVE) Ethyl Alcohol mg/dL 09/14/17 09/14/17 09/14/17 Range/Units 05:00 05:00 05:00 WBC 16.03 H (4.0-11.0) K/uL RBC 4.17 L (4.50-5.90) M/uL Hgb 12.5 L (13.0-17.0) g/dL Hct 36.3 L (38.0-50.0) % MCV 87.1 (80.0-98.0) fL MCH 30.0 (27.0-32.0) pg MCHC 34.4 (31.0-37.0) g/dL RDW Std Deviation 37.2 (28.0-62.0) fl RDW Coeff of Elizabeth 12 (11.0-15.0) % Plt Count 187 (150-400) K/uL MPV 9.70 (7.40-12.00) fL Neut % (Auto) 85.4 H (48.0-80.0) % Lymph % (Auto) 7.9 L (16.0-40.0) % Warren % (Auto) 6.6 (0.0-15.0) % Eos % (Auto) 0.0 (0.0-7.0) % Baso % (Auto) 0.1 (0.0-1.5) % Neut # (Auto) 13.7 H (1.4-5.7) K/uL Lymph # (Auto) 1.3 (0.6-2.4) K/uL Warren # (Auto) 1.1 H (0.0-0.8) K/uL Eos # (Auto) 0.0 (0.0-0.7) K/uL Baso # (Auto) 0.0 (0.0-0.1) K/uL Add Manual Diff Neutrophils % (Manual) (48.0-80.0) % Band Neutrophils % % Lymphocytes % (Manual) (16.0-40.0) % Monocytes % (Manual) (0.0-15.0) % Basophils % (Manual) (0.0-1.5) % Nucleated RBC % 0.0 /100WBC Absolute Seg Neuts (1.4-5.7) Band Neutrophils # Lymphocytes # (Manual) (0.6-2.4) Monocytes # (Manual) (0.0-0.8) Basophils # (Manual) (0.0-0.1) Nucleated RBCs # 0 K/uL Lactate 0.7 (0.20-2.00) mmol/L Sodium 139 (136-148) mmol/L Potassium 4.0 (3.5-5.1) mmol/L Chloride 104 (98-107) mmol/L Carbon Dioxide 25.2 (21.0-32.0) mmol/L BUN 17 (7.0-18.0) mg/dL Creatinine 1.8 H (0.8-1.3) mg/dL Est Cr Clr Drug Dosing 63.42 mL/min Estimated GFR (MDRD) 46.6 ml/min Glucose 117 H (74-106) mg/dL Calcium 8.1 L (8.5-10.1) mg/dL Magnesium 2.7 H (1.8-2.4) mg/dL Total Bilirubin (0.2-1.0) mg/dL AST (15-37) IU/L ALT (14-63) IU/L Alkaline Phosphatase (46-116) U/L Creatine Kinase (26-308) U/L Total Protein (6.4-8.2) g/dL Albumin (3.4-5.0) g/dL Globulin (2.0-3.5) g/dL Albumin/Globulin Ratio (1.3-2.8) Amylase (25-115) U/L Lipase (73-393) U/L TSH 3rd Generation (0.36-3.74) uIU/mL Prolactin (1-23) ng/mL Urine Color Urine Appearance Urine pH (5.0-8.0) Ur Specific [place] (1.001-1.035) Urine Protein (NEGATIVE) mg/dL Urine Glucose (UA) (NEGATIVE) mg/dL Urine Ketones (NEGATIVE) mg/dL Urine Occult Blood (NEGATIVE) Urine Nitrite (NEGATIVE) Urine Bilirubin (NEGATIVE) Urine Urobilinogen (<2.0) EU/dL Ur Leukocyte Esterase (NEGATIVE) Urine RBC (0-2/HPF) Urine WBC (0-5/HPF) Ur Epithelial Cells (NONE-FEW) Amorphous Sediment (NEGATIVE) Urine Bacteria (NEGATIVE) Urine Mucus (NONE-MOD) Urine Opiates Screen (NEGATIVE) Ur Oxycodone Screen (NEGATIVE) Urine Methadone Screen (NEGATIVE) Ur Barbiturates Screen (NEGATIVE) Ur Phencyclidine Scrn (NEGATIVE) Ur Amphetamine Screen (NEGATIVE) U Methamphetamines Scrn (NEGATIVE) U Benzodiazepines Scrn (NEGATIVE) U Cocaine Metab Screen (NEGATIVE) U Marijuana (THC) Screen (NEGATIVE) Ethyl Alcohol mg/dL 09/14/17 09/14/17 Range/Units 14:56 14:56 WBC 13.51 H (4.0-11.0) K/uL RBC 4.14 L (4.50-5.90) M/uL Hgb 12.4 L (13.0-17.0) g/dL Hct 36.1 L (38.0-50.0) % MCV 87.2 (80.0-98.0) fL MCH 30.0 (27.0-32.0) pg MCHC 34.3 (31.0-37.0) g/dL RDW Std Deviation 38.4 (28.0-62.0) fl RDW Coeff of Elizabeth 12 (11.0-15.0) % Plt Count 182 (150-400) K/uL MPV 10.10 (7.40-12.00) fL Neut % (Auto) (48.0-80.0) % Lymph % (Auto) (16.0-40.0) % Warren % (Auto) (0.0-15.0) % Eos % (Auto) (0.0-7.0) % Baso % (Auto) (0.0-1.5) % Neut # (Auto) (1.4-5.7) K/uL Lymph # (Auto) (0.6-2.4) K/uL Warren # (Auto) (0.0-0.8) K/uL Eos # (Auto) (0.0-0.7) K/uL Baso # (Auto) (0.0-0.1) K/uL Add Manual Diff Neutrophils % (Manual) (48.0-80.0) % Band Neutrophils % % Lymphocytes % (Manual) (16.0-40.0) % Monocytes % (Manual) (0.0-15.0) % Basophils % (Manual) (0.0-1.5) % Nucleated RBC % 0.0 /100WBC Absolute Seg Neuts (1.4-5.7) Band Neutrophils # Lymphocytes # (Manual) (0.6-2.4) Monocytes # (Manual) (0.0-0.8) Basophils # (Manual) (0.0-0.1) Nucleated RBCs # 0 K/uL Lactate (0.20-2.00) mmol/L Sodium 138 (136-148) mmol/L Potassium 3.5 (3.5-5.1) mmol/L Chloride 104 (98-107) mmol/L Carbon Dioxide 23.7 (21.0-32.0) mmol/L BUN 16 (7.0-18.0) mg/dL Creatinine 1.6 H (0.8-1.3) mg/dL Est Cr Clr Drug Dosing 71.34 mL/min Estimated GFR (MDRD) 53.4 ml/min Glucose 98 (74-106) mg/dL Calcium 8.2 L (8.5-10.1) mg/dL Magnesium (1.8-2.4) mg/dL Total Bilirubin 0.3 (0.2-1.0) mg/dL AST 56 H (15-37) IU/L ALT 30 (14-63) IU/L Alkaline Phosphatase 47 (46-116) U/L Creatine Kinase 1390 H (26-308) U/L Total Protein 6.5 (6.4-8.2) g/dL Albumin 3.6 (3.4-5.0) g/dL Globulin 2.9 (2.0-3.5) g/dL Albumin/Globulin Ratio 1.2 L (1.3-2.8) Amylase (25-115) U/L Lipase (73-393) U/L TSH 3rd Generation (0.36-3.74) uIU/mL Prolactin (1-23) ng/mL Urine Color Urine Appearance Urine pH (5.0-8.0) Ur Specific [place] (1.001-1.035) Urine Protein (NEGATIVE) mg/dL Urine Glucose (UA) (NEGATIVE) mg/dL Urine Ketones (NEGATIVE) mg/dL Urine Occult Blood (NEGATIVE) Urine Nitrite (NEGATIVE) Urine Bilirubin (NEGATIVE) Urine Urobilinogen (<2.0) EU/dL Ur Leukocyte Esterase (NEGATIVE) Urine RBC (0-2/HPF) Urine WBC (0-5/HPF) Ur Epithelial Cells (NONE-FEW) Amorphous Sediment (NEGATIVE) Urine Bacteria (NEGATIVE) Urine Mucus (NONE-MOD) Urine Opiates Screen (NEGATIVE) Ur Oxycodone Screen (NEGATIVE) Urine Methadone Screen (NEGATIVE) Ur Barbiturates Screen (NEGATIVE) Ur Phencyclidine Scrn (NEGATIVE) Ur Amphetamine Screen (NEGATIVE) U Methamphetamines Scrn (NEGATIVE) U Benzodiazepines Scrn (NEGATIVE) U Cocaine Metab Screen (NEGATIVE) U Marijuana (THC) Screen (NEGATIVE) Ethyl Alcohol mg/dL Result Diagrams: 09/14/17 14:56 09/14/17 14:56 - Problem List (1) Acute kidney failure SNOMED Code(s): 64466912 ICD Code: N17.9 - ACUTE KIDNEY FAILURE, UNSPECIFIED Status: Acute Current Visit: Yes (2) Rhabdomyolysis SNOMED Code(s): 385731183 ICD Code: M62.82 - RHABDOMYOLYSIS Status: Acute Current Visit: Yes (3) Drug use disorder SNOMED Code(s): 94450144 ICD Code: F19.90 - OTHER PSYCHOACTIVE SUBSTANCE USE, UNSPECIFIED, UNCOMPLICATED Status: Acute Current Visit: Yes (4) Restlessness and agitation SNOMED Code(s): 895659882 ICD Code: R45.1 - RESTLESSNESS AND AGITATION Status: Acute Current Visit : Yes Problem List Initiated/Reviewed/Updated: Yes Orders Last 24hrs: Active Orders 24 hr Category Date Time Status Patient Status [ADT] Stat ADT 09/14/17 00:58 Active Cardiac Monitoring [RC] . DIRECTED Care 09/13/17 22:05 Active Notify Provider Consults [RC] ASDIRECTED Care 09/14/17 14:40 Active Oxygen Therapy [RC] PRN Care 09/14/17 09:46 Active Filler Room Attendant Discontinue [Cardiac Monitoring Care 09/14/17 18:18 Active Discontinue] [RC] Click to Edit Up ad [place] [RC] ASDIRECTED Care 09/14/17 09:46 Active VTE/DVT Education [RC] PER UNIT ROUTINE Care 09/14/17 09:46 Active Vital Signs [RC] Q4H Care 09/14/17 09:46 Active Consult to Physician [CONS] Routine Cons 09/14/17 14:39 Active Regular Diet [DIET] Diet 09/14/17 Lunch Active Brain w wo Cont [MR] Routine Exams 09/14/17 14:35 Stop Req Brain wo Cont [MR] Stat Exams 09/14/17 14:37 Ordered Retroperitoneal Comp [US] Routine Exams 09/14/17 11:28 Taken BASIC METABOLIC PANEL,BMP [CHEM] AM Lab 09/15/17 05:11 Ordered CBC WITH AUTO DIFF [HEME] AM Lab 09/15/17 05:11 Ordered CULTURE BLOOD [BC] Stat Lab 09/14/17 11:50 Received CULTURE BLOOD [BC] Stat Lab 09/14/17 12:01 Received CULTURE URINE [RM] Routine Lab 09/14/17 00:15 Received DRUG SCREEN, URINE [URCHEM] Stat Lab 09/13/17 23:18 Ordered UA W/MICROSCOPIC [URIN] Stat Lab 09/13/17 23:15 Ordered Escitalopram [Lexapro] Med 09/14/17 13:45 Active 10 mg PO DAILY Lactated Ringers [Ringers, Lactated] 1,000 ml Med 09/14/17 11:30 Active IV ASDIRECTED Sodium Chloride 0.9% [Normal Saline] 1,000 ml Med 09/14/17 02:15 Active IV ASDIRECTED Sodium Chloride 0.9% [Saline Flush] Med 09/13/17 22:05 Active 10 ml FLUSH ASDIRECTED PRN Sodium Chloride 0.9% [Saline Flush] Med 09/13/17 22:05 Active 2.5 ml FLUSH ASDIRECTED PRN cefTRIAXone [Rocephin in Dextrose,Iso-Osm 1 GM/50 ML] 1 Med 09/14/17 12:00 Active gm Premix Bag 1 bag IV Q24H levETIRAcetam [Keppra] Med 09/14/17 21:00 Active 250 mg PO BID Blood Culture x2 Reflex Set [OM.PC] Stat Oth 09/14/17 11:31 Ordered Saline Lock Insert [OM.PC] Stat Oth 09/13/17 22:05 Ordered Sequential Compression Device [OM.PC] Per Unit Routine Oth 09/14/17 09:47 Ordered Resuscitation Status Routine Resus Stat 09/14/17 09:46 Ordered Medication Orders Escitalopram Oxalate (Lexapro) 10 mg PO DAILY [facility] Last Admin: 09/14/17 13:50 Dose: 10 mg Sodium Chloride (Normal Saline) 1,000 mls @ 200 mls/hr IV ASDIRECTED [facility] Last Admin: 09/14/17 02:22 Dose: 70 mls/hr Lactated Ringer's (Ringers, Lactated) 1,000 mls @ 200 mls/hr IV ASDIRECTED [facility] Last Admin: 09/14/17 15:15 Dose: 200 mls/hr Ceftriaxone Sodium/Dextrose 1 (gm/ Premix) 50 mls @ 100 mls/hr IV Q24H [facility] Last Admin: 09/14/17 11:59 Dose: 100 mls/hr Levetiracetam (Keppra) 250 mg PO BID [facility] Sodium Chloride (Saline Flush) 10 ml FLUSH ASDIRECTED PRN PRN Reason: Keep Vein Open Sodium Chloride (Saline Flush) 2.5 ml FLUSH ASDIRECTED PRN PRN Reason: Keep Vein Open Assessment/Plan Comment:: Patient seen and examined ,discussed with resident , agree with assessment and plan also please see the following addendum. Restless at time , needs Ativan to keep him calm, at time confused but he reorients when talking to him , his pupils are dilated and minimally reactive to light.Attempted to call his brother in law but he did not answer and his voicemessage is full. Seizure d/o - Neurology consult , keppra adjusted to kidney function, MRI wand wo contrast of the brain , seizure precaution Ongoing rhabdomyolysis- will continue iv fluids Acute kidney failure- secondary to rhabdomyolysis, vomiting - continue iv fluids , monitor BUN creatinine restlessness- likely patient took a synthetic drug that could not be detected by lab due to his dilated pupils, ativan 2 mg iv q 4 h prn for anxiety/agitation Pulmonary nodules- patient will need f/up as outpatient with Pulmonology Anxiety/ADHD- will start patient on mg po daily, he used to be on this medication before.
--- NOTE | 2017-09-14 11:22 | CT ---
EXAM DATE: 09/14/17 PATIENT'S AGE: 22 Patient: OMAR AGUERO Facility: [place], [place] Site . Site : 1995 Study: CT Head [id number]/25/2018 10:46:43 PM Ordering Physician: Doctor Boo Final Report: INDICATION: seizure CT HEAD WITHOUT CONTRAST TECHNIQUE: Multiple axial CT images were performed through the head without intravenous contrast administration. COMPARISON: No previous studies are currently available for comparison. FINDINGS: No acute intracranial hemorrhage is identified. No extra-axial collections are evident and there is no mass effect or midline shift. Ventricles are normal in size and configuration. Brain parenchyma appears normal with unremarkable renae-white differentiation. Osseous structures are within normal limits and no fractures are seen. Included portions of the paranasal sinuses and mastoid air cells are normally aerated. IMPRESSION: Normal non-contrast head CT. NIKOLE THRASHER MD [employer] Dictated by: Marcos Thrasher MD @ 09/13/2017 23:03:03 (Electronic Signature) Report Signed by Proxy. [facility]
--- NOTE | 2017-09-14 11:24 | CT ---
EXAM DATE: 09/14/17 PATIENT'S AGE: 22 Patient: OMAR AGUERO Facility: [place], [place] Site . Site : 1995 Study: CT Abdomen/Pelvis [id number]/25/2018 11:48:42 PM Ordering Physician: Shaggy Deluca Final Report: INDICATION: Abdominal pain. Vomiting. Leukocytosis TECHNIQUE: CT abdomen and pelvis acquired with IV contrast. COMPARISON: None available FINDINGS: Only small amount of intravenous contrast is present, limiting evaluation. Chest: Several pulmonary nodular opacities, measuring up to 5 millimeters. A partially imaged soft tissue density in the anterior mediastinum could be related to thymic tissue. Liver: Unremarkable. Spleen: Unremarkable. Pancreas: Unremarkable. Gallbladder and bile ducts: Unremarkable. Adrenal glands: Unremarkable. Kidneys: Diffusely heterogeneous bilateral nephrograms. No hydronephrosis. GI tract: Unremarkable. Appendix is not seen. Vascular structures: Unremarkable. Lymph nodes: Unremarkable. Miscellaneous: Unremarkable. No free air or significant free fluid. Pelvic Organs: Mild bladder wall thickening versus underdistention. Grossly unremarkable prostate. Bones: 6 lumbarized vertebral bodies. Mild focal central height loss along the superior endplates of the T8-T10 vertebral bodies. IMPRESSION: Diffusely heterogeneous bilateral nephrograms could be partially related to the small amount of intravenous contrast present, however concerning for pyelonephritis or glomerulonephritis. Mild bladder wall thickening. Correlate clinically. Pulmonary nodules, statistically postinflammatory in a patient of this age without history of neoplasm. Correlate clinically, and if indicated, followup. Mild central height loss of the T8-T10 vertebral bodies. Correlate clinically for acuity. Dictated by Terrence Palacio MD @ 09/14/2017 12:33:46 AM Please note that all CT scans at this facility use dose modulation, iterative reconstruction, and/or weight-based dosing when appropriate to reduce radiation dose to as low as reasonably achievable. Dictated by: Terrence Palacio MD @ 09/14/2017 00:33:51 (Electronic Signature) Report Signed by Proxy. [facility]
[2017-09-14] MEDS: cefTRIAXone 1 GM in Premix Bag 1 BAG IV SCH (11:59)
[2017-09-14] MEDS ORDERED: levETIRAcetam 500 MG Tab PO ONE (12:00)
[2017-09-14] MEDS: Escitalopram 10 MG Tab PO SCH (13:50)
[2017-09-14] MEDS ORDERED: LORazepam 2 MG/ML SDV IVPUSH ONE ×2 (14:02→16:49)
[2017-09-14] MEDS: Lactated Ringers 1,000 ML IV SCH ×2 (15:15→22:36)
[2017-09-14] MEDS ORDERED: Gadobutrol 10 mMOL/10 ML SDV IVPUSH STA (16:34)
[2017-09-14] MEDS ORDERED: LORazepam 2 MG/ML SDV IVPUSH PRN (18:55)
[2017-09-14] MEDS: levETIRAcetam 500 MG Tab PO SCH (20:00)
[2017-09-15] MEDS: Lactated Ringers 1,000 ML IV SCH ×3 (04:20→20:44)
[2017-09-15 05:41] LABS: CHLORIDE,CL 105 mmol/L (98-107); SODIUM,NA 141 mmol/L (136-148)
[2017-09-15] MEDS: levETIRAcetam 500 MG Tab PO SCH ×3 (08:10→21:28)
[2017-09-15] MEDS: Escitalopram 10 MG Tab PO SCH (08:10)
--- NOTE | 2017-09-15 08:53 | MR ---
EXAM DATE: 09/14/17 PATIENT'S AGE: 22 Patient: OMAR AGUERO Facility: [place], [place] Site . Site : 1995 Study: MRI Head [id number]/26/[id number] 6:17:10 PM Ordering Physician: Saumya Cordoba Final Report: INDICATION: Seizure, pulmonary nodule. TECHNIQUE: Multiplanar multi-weighted MRI of the brain and brainstem was performed without intravenous contrast. COMPARISON: None available. FINDINGS: Study is limited by motion The scalp and calvarium are normal. There is no intra- or extra-axial fluid collection. The ventricles are normal in size and position without evidence of hydrocephalus. The posterior fossa is unremarkable. The pituitary and sella are normal. The brainstem and craniocervical junction are unremarkable. Diffusion weighted images reveal no hyperintensities to suggest acute cerebral infarction. The paranasal sinuses are normal. The visualized portions of the mastoids are unremarkable. The orbits appear normal. IMPRESSION: Study limited by motion. No evidence of acute infarct or intracranial mass seen. Dictated by Bravo Gamez MD @ Sep 14 2017 9:40PM (Electronic Signature) Report Signed by Proxy. [facility]
--- NOTE | 2017-09-15 09:21 | US ---
EXAMINATION: Renal ultrasound HISTORY: Elevated creatinine COMPARISON: CT dated 09/13/2017 TECHNIQUE: Grayscale and color Doppler imaging obtained FINDINGS: The right kidney measures at least 11.6 cm and the left kidney measures at least 11.3 cm po le-to-pole without evidence of hydronephrosis. The renal cortical echotexture is normal. Normal color Doppler flow bilaterally. No renal masses or perinephric fluid collections. The urinary bladder is m inimally filled. IMPRESSION: Unremarkable renal ultrasound.
[2017-09-15] MEDS ORDERED: Acyclovir 500 MG/10 ML SDV IV SCH (10:00)
[2017-09-15] MEDS: cefTRIAXone 1 GM in Premix Bag 1 BAG IV SCH (12:02)
[2017-09-15] MEDS ORDERED: cefTRIAXone 1 GM in Premix Bag 1 BAG IV SCH (13:15)
--- NOTE | 2017-09-15 14:15 | PCM.PN ---
<Tan Reyes - Last Filed: 09/15/17 14:09> - General Info Date of Service: 09/15/17 Subjective Update: Over the last 24hrs, the patient has had concerning mental status fluctuations. During evening rounds, he was noted to have dilated pupils with the attending physician concerned about possible synthetic drug use. The drug screen obtained is negative. An MRI was obtained which was initially read on the report as negative. This was then discussed with neurology who indicated temporal lobe enhancement with concerns of encephalitis given the clinical picture. Thus, an LP was obtained. Talking to the patient, he tells me that he feels fine. However, he has difficulty with recall from what brought him into the hospital aside from a "seizure". On physical exam, he also had issues with counting serial 7s, and spelling "world" backwards. He denies any headache, fever, neck stiffness, nausea or vomiting. - Review of Systems General: Reports: Other (see hpi) - Patient Data Vitals - Most Recent: Last Vital Signs Temp 37.4 C 09/15/17 12:00 Pulse 65 09/15/17 12:00 Resp 18 09/15/17 12:00 BP 134/63 09/15/17 12:00 Pulse Ox 96 09/15/17 12:00 Weight - Most Recent: 156 lb 3.2 oz I&O - Last 24 Hours: Intake & Output 09/14/17 09/15/17 09/15/17 22:59 06:59 14:59 Intake Total 2934 2831 Output Total 900 1400 Balance 2034 1431 Lab Results Last 24 Hours: Laboratory Results - last 24 hr 09/14/17 09/14/17 09/15/17 Range/Units 14:56 14:56 04:45 WBC 13.51 H 9.68 (4.0-11.0) K/uL RBC 4.14 L 4.01 L (4.50-5.90) M/uL Hgb 12.4 L 12.0 L (13.0-17.0) g/dL Hct 36.1 L 35.2 L (38.0-50.0) % MCV 87.2 87.8 (80.0-98.0) fL MCH 30.0 29.9 (27.0-32.0) pg MCHC 34.3 34.1 (31.0-37.0) g/dL RDW Std Deviation 38.4 37.7 (28.0-62.0) fl RDW Coeff of Elizabeth 12 12 (11.0-15.0) % Plt Count 182 183 (150-400) K/uL MPV 10.10 10.70 (7.40-12.00) fL Neut % (Auto) 68.1 (48.0-80.0) % Lymph % (Auto) 15.1 L (16.0-40.0) % [place]undy % (Auto) 16.6 H (0.0-15.0) % Eos % (Auto) 0.0 (0.0-7.0) % Baso % (Auto) 0.2 (0.0-1.5) % Neut # (Auto) 6.6 H (1.4-5.7) K/uL Lymph # (Auto) 1.5 (0.6-2.4) K/uL [place] # (Auto) 1.6 H (0.0-0.8) K/uL Eos # (Auto) 0.0 (0.0-0.7) K/uL Baso # (Auto) 0.0 (0.0-0.1) K/uL Nucleated RBC % 0.0 0.0 /100WBC Nucleated RBCs # 0 0 K/uL Sodium 138 (136-148) mmol/L Potassium 3.5 (3.5-5.1) mmol/L Chloride 104 (98-107) mmol/L Carbon Dioxide 23.7 (21.0-32.0) mmol/L BUN 16 (7.0-18.0) mg/dL Creatinine 1.6 H (0.8-1.3) mg/dL Est Cr Clr Drug Dosing 71.34 mL/min Estimated GFR (MDRD) 53.4 ml/min Glucose 98 (74-106) mg/dL Calcium 8.2 L (8.5-10.1) mg/dL Total Bilirubin 0.3 (0.2-1.0) mg/dL AST 56 H (15-37) IU/L ALT 30 (14-63) IU/L Alkaline Phosphatase 47 (46-116) U/L Creatine Kinase 1390 H (26-308) U/L Total Protein 6.5 (6.4-8.2) g/dL Albumin 3.6 (3.4-5.0) g/dL Globulin 2.9 (2.0-3.5) g/dL Albumin/Globulin Ratio 1.2 L (1.3-2.8) CSF Appearance CSF Color CSF WBC (0-0.005) K/uL CSF RBC (0.0-0.0) M/uL CSF Mononuclear Cells % CSF Polymorphonuclear % CSF Glucose (40-70) mg/dL CSF Total Protein (15-45) mg/dL Acetaminophen ug/mL 09/15/17 09/15/17 09/15/17 Range/Units 04:45 04:45 10:32 WBC (4.0-11.0) K/uL RBC (4.50-5.90) M/uL Hgb (13.0-17.0) g/dL Hct (38.0-50.0) % MCV (80.0-98.0) fL MCH (27.0-32.0) pg MCHC (31.0-37.0) g/dL RDW Std Deviation (28.0-62.0) fl RDW Coeff of Elizabeth (11.0-15.0) % Plt Count (150-400) K/uL MPV (7.40-12.00) fL Neut % (Auto) (48.0-80.0) % Lymph % (Auto) (16.0-40.0) % [place] % (Auto) (0.0-15.0) % Eos % (Auto) (0.0-7.0) % Baso % (Auto) (0.0-1.5) % Neut # (Auto) (1.4-5.7) K/uL Lymph # (Auto) (0.6-2.4) K/uL [place] # (Auto) (0.0-0.8) K/uL Eos # (Auto) (0.0-0.7) K/uL Baso # (Auto) (0.0-0.1) K/uL Nucleated RBC % /100WBC Nucleated RBCs # K/uL Sodium 141 (136-148) mmol/L Potassium 3.6 (3.5-5.1) mmol/L Chloride 105 (98-107) mmol/L Carbon Dioxide 27.2 (21.0-32.0) mmol/L BUN 16 (7.0-18.0) mg/dL Creatinine 1.4 H (0.8-1.3) mg/dL Est Cr Clr Drug Dosing 81.54 mL/min Estimated GFR (MDRD) > 60.0 ml/min Glucose 91 (74-106) mg/dL Calcium 8.3 L (8.5-10.1) mg/dL Total Bilirubin (0.2-1.0) mg/dL AST (15-37) IU/L ALT (14-63) IU/L Alkaline Phosphatase (46-116) U/L Creatine Kinase 2195 H (26-308) U/L Total Protein (6.4-8.2) g/dL Albumin (3.4-5.0) g/dL Globulin (2.0-3.5) g/dL Albumin/Globulin Ratio (1.3-2.8) CSF Appearance CSF Color CSF WBC (0-0.005) K/uL CSF RBC (0.0-0.0) M/uL CSF Mononuclear Cells % CSF Polymorphonuclear % CSF Glucose (40-70) mg/dL CSF Total Protein (15-45) mg/dL Acetaminophen 1.8 ug/mL 09/15/17 09/15/17 Range/Units 11:25 11:25 WBC (4.0-11.0) K/uL RBC (4.50-5.90) M/uL Hgb (13.0-17.0) g/dL Hct (38.0-50.0) % MCV (80.0-98.0) fL MCH (27.0-32.0) pg MCHC (31.0-37.0) g/dL RDW Std Deviation (28.0-62.0) fl RDW Coeff of Elizabeth (11.0-15.0) % Plt Count (150-400) K/uL MPV (7.40-12.00) fL Neut % (Auto) (48.0-80.0) % Lymph % (Auto) (16.0-40.0) % [place] % (Auto) (0.0-15.0) % Eos % (Auto) (0.0-7.0) % Baso % (Auto) (0.0-1.5) % Neut # (Auto) (1.4-5.7) K/uL Lymph # (Auto) (0.6-2.4) K/uL [place] # (Auto) (0.0-0.8) K/uL Eos # (Auto) (0.0-0.7) K/uL Baso # (Auto) (0.0-0.1) K/uL Nucleated RBC % /100WBC Nucleated RBCs # K/uL Sodium (136-148) mmol/L Potassium (3.5-5.1) mmol/L Chloride (98-107) mmol/L Carbon Dioxide (21.0-32.0) mmol/L BUN (7.0-18.0) mg/dL Creatinine (0.8-1.3) mg/dL Est Cr Clr Drug Dosing mL/min Estimated GFR (MDRD) ml/min Glucose (74-106) mg/dL Calcium (8.5-10.1) mg/dL Total Bilirubin (0.2-1.0) mg/dL AST (15-37) IU/L ALT (14-63) IU/L Alkaline Phosphatase (46-116) U/L Creatine Kinase (26-308) U/L Total Protein (6.4-8.2) g/dL Albumin (3.4-5.0) g/dL Globulin (2.0-3.5) g/dL Albumin/Globulin Ratio (1.3-2.8) CSF Appearance CLEAR CSF Color COLORLESS CSF WBC 0.002 (0-0.005) K/uL CSF RBC 0.000 (0.0-0.0) M/uL CSF Mononuclear Cells 100.0 % CSF Polymorphonuclear 0.0 % CSF Glucose 59.0 (40-70) mg/dL CSF Total Protein 26 (15-45) mg/dL Acetaminophen ug/mL Khoa Results Last 24 Hours: Microbiology 09/15/17 11:25 Gram Stain - Preliminary Cerebral Spinal Fluid 09/14/17 12:01 Aerobic Blood Culture - Preliminary Blood - Venous - Lab Draw NO GROWTH AFTER 1 DAY Anaerobic Blood Culture - Preliminary 09/14/17 11:50 Aerobic Blood Culture - Preliminary Blood - Venous NO GROWTH AFTER 1 DAY Anaerobic Blood Culture - Preliminary NO GROWTH AFTER 1 DAY Med Orders - Current: Current Medications Escitalopram Oxalate (Lexapro) 10 mg PO DAILY [facility] Last Admin: 09/15/17 08:10 Dose: 10 mg Sodium Chloride (Normal Saline) 1,000 mls @ 200 mls/hr IV ASDIRECTED [facility] Last Admin: 09/14/17 02:22 Dose: 70 mls/hr Lactated Ringer's (Ringers, Lactated) 1,000 mls @ 200 mls/hr IV ASDIRECTED [facility] Last Admin: 09/15/17 10:08 Dose: 200 mls/hr Ceftriaxone Sodium/Dextrose 1 (gm/ Premix) 50 mls @ 100 mls/hr IV Q24H [facility] Last Admin: 09/15/17 12:02 Dose: 100 mls/hr Acyclovir 700 mg/ Sodium (Chloride) 114 mls @ 114 mls/hr IV Q8H [facility] Last Admin: 09/15/17 10:35 Dose: 114 mls/hr Vancomycin HCl 1,750 mg/ (Sodium Chloride) 500 mls @ 250 mls/hr IV ONETIME ONE Stop: 09/15/17 15:14 Last Admin: 09/15/17 13:22 Dose: 250 mls/hr Ceftriaxone Sodium/Dextrose 1 (gm/ Premix) 50 mls @ 100 mls/hr IV Q24H [facility] Levetiracetam (Keppra) 250 mg PO BID [facility] Last Admin: 09/15/17 08:10 Dose: 250 mg Lorazepam (Ativan) 2 mg IVPUSH Q4H PRN PRN Reason: agitation , restlessness Last Admin: 09/15/17 10:59 Dose: 2 mg Sodium Chloride (Saline Flush) 10 ml FLUSH ASDIRECTED PRN PRN Reason: Keep Vein Open Sodium Chloride (Saline Flush) 2.5 ml FLUSH ASDIRECTED PRN PRN Reason: Keep Vein Open Vancomycin HCl (Pharmacy To Dose - Vancomycin) 0 dose .XX ASDIRECTED [facility] Discontinued Medications Acetaminophen (Tylenol) 650 mg PO NOW ONE Stop: 09/13/17 22:14 Last Admin: 09/13/17 22:24 Dose: 650 mg Gadobutrol (Gadavist) 10 ml IVPUSH ONETIME STA Stop: 09/14/17 16:35 Last Admin: 09/14/17 16:36 Dose: 2.5 ml Sodium Chloride (Normal Saline) 1,000 mls @ 999 mls/hr IV STAT ONE Stop: 09/13/17 23:06 Last Admin: 09/13/17 22:15 Dose: 999 mls/hr Sodium Chloride (Normal Saline) 1,000 mls @ 999 mls/hr IV .Bolus ONE Stop: 09/14/17 00:20 Last Admin: 09/13/17 23:21 Dose: 999 mls/hr Magnesium Sulfate 2 gm/ Premix 50 mls @ 50 mls/hr IV ONETIME ONE Stop: 09/14/17 03:02 Last Admin: 09/14/17 02:22 Dose: 50 mls/hr Acyclovir 700 mg/ Sodium (Chloride) 114 mls @ 114 mls/hr IV Q8H [facility] Iopamidol (Isovue-300 (61%)) 50 ml IVPUSH ONETIME ONE Stop: 09/13/17 23:55 Last Admin: 09/13/17 23:55 Dose: 50 ml Levetiracetam (Keppra) 500 mg PO BID [facility] Last Admin: 09/14/17 09:58 Dose: 500 mg Levetiracetam (Keppra) 500 mg PO ONETIME ONE Stop: 09/14/17 12:01 Last Admin: 09/14/17 12:50 Dose: 500 mg Lorazepam (Ativan) 2 mg IVPUSH ONETIME ONE Stop: 09/14/17 14:03 Last Admin: 09/14/17 14:48 Dose: 2 mg Lorazepam (Ativan) 2 mg IVPUSH ONETIME ONE Stop: 09/14/17 16:50 Last Admin: 09/14/17 17:12 Dose: 2 mg Ondansetron HCl (Zofran) 4 mg IVPUSH ONETIME ONE Stop: 09/13/17 22:28 Last Admin: 09/13/17 22:32 Dose: 4 mg - Exam General: Alert, Oriented, Cooperative HEENT: Pupils Equal, Pupils Reactive, EOMI, Mucous Membr. Moist/[place], Other ( pupils dilated, reactive to light) Neck: Supple Lungs: Clear to Auscultation, Normal Respiratory Effort Cardiovascular: Regular Rate, Regular Rhythm GI/Abdominal Exam: Normal Bowel Sounds, Soft, Non-Tender, No Organomegaly, No Distention, No Abnormal Bruit, No Mass Back Exam: Normal Inspection, Full Range of Motion Extremities: Normal Inspection, Normal Range of Motion, Non-Tender, No Pedal Edema, Normal Capillary Refill Peripheral Pulses: 2+: Dorsalis Pedis (L), Dorsalis Pedis (R) Skin: Warm, Dry, Intact Wound/Incisions: Healing Well Neurological: No New Focal Deficit Psy/Mental Status: Alert, Normal Affect, Normal Mood - Problem List Review Problem List Initiated/Reviewed/Updated: Yes - My Orders Last 24 Hours: My Active Orders 09/15/17 09:49 Lumbar Puncture Diag [CR] Routine 09/15/17 10:32 LEANA W/REFLEX [REF] Routine HIV12 AG/AB 4TH GEN W/REFLEX [CHEM] Routine HSV TYPE SPECIFIC IMMUNOBLOT [REF] Routine [place] VIRUS ANTIBODY,SERUM [REF] Routine 09/15/17 11:25 CELL COUNT,CSF [BF] Routine CULTURE CSF + SMEAR [RM] Routine GLUCOSE,CSF [BF] Routine PROTEIN,CSF [BF] Routine VDRL, CSF Routine - Plan Plan:: Patient seen and examined ,discussed with resident , agree with assessment and plan also please see the following addendum. Restless at time , needs Ativan to keep him calm, at time confused but he reorients when talking to him , his pupils are dilated and minimally reactive to light.Attempted to call his brother in law but he did not answer and his voicemessage is full. Seizure d/o - Neurology consult , keclaudiara adjusted to kidney function, MRI wand wo contrast of the brain , seizure precaution Ongoing rhabdomyolysis- will continue iv fluids Acute kidney failure- secondary to rhabdomyolysis, vomiting - continue iv fluids , monitor BUN creatinine restlessness- likely patient took a synthetic drug that could not be detected by lab due to his dilated pupils, ativan 2 mg iv q 4 h prn for anxiety/agitation Pulmonary nodules- patient will need f/up as outpatient with Pulmonology Anxiety/ADHD- will start patient on mg po daily, he used to be on this medication before. Assessment: #1. Altered mental status #2. Mydriasis #3. STUART #4. Rhabdomyolysis #5. Recent tonic clonic seizure #6. Anxiety Plan: #1. Continue IVF 200mL/h #2. f/u on LP #3. Acyclovir 10mg/kg q8h. We will continue this until the results of the LP are back. #4. patient's mental status is improving, will continue to monitor. <Antohi,Petrabdirahman - Last Filed: 09/15/17 17:58> - Patient Data Vitals - Most Recent: Last Vital Signs Temp 99.4 F 09/15/17 12:00 Pulse 65 09/15/17 12:00 Resp 18 09/15/17 12:00 BP 134/63 09/15/17 12:00 Pulse Ox 96 09/15/17 12:00 I&O - Last 24 Hours: Intake & Output 09/15/17 09/15/17 09/15/17 06:59 14:59 22:59 Intake Total 2831 164 Output Total 1400 Balance 1431 164 Lab Results Last 24 Hours: Laboratory Results - last 24 hr 09/15/17 09/15/17 09/15/17 Range/Units 04:45 04:45 04:45 WBC 9.68 (4.0-11.0) K/uL RBC 4.01 L (4.50-5.90) M/uL Hgb 12.0 L (13.0-17.0) g/dL Hct 35.2 L (38.0-50.0) % MCV 87.8 (80.0-98.0) fL MCH 29.9 (27.0-32.0) pg MCHC 34.1 (31.0-37.0) g/dL RDW Std Deviation 37.7 (28.0-62.0) fl RDW Coeff of Elizabeth 12 (11.0-15.0) % Plt Count 183 (150-400) K/uL MPV 10.70 (7.40-12.00) fL Neut % (Auto) 68.1 (48.0-80.0) % Lymph % (Auto) 15.1 L (16.0-40.0) % [place] % (Auto) 16.6 H (0.0-15.0) % Eos % (Auto) 0.0 (0.0-7.0) % Baso % (Auto) 0.2 (0.0-1.5) % Neut # (Auto) 6.6 H (1.4-5.7) K/uL Lymph # (Auto) 1.5 (0.6-2.4) K/uL [place]undy # (Auto) 1.6 H (0.0-0.8) K/uL Eos # (Auto) 0.0 (0.0-0.7) K/uL Baso # (Auto) 0.0 (0.0-0.1) K/uL Nucleated RBC % 0.0 /100WBC Nucleated RBCs # 0 K/uL Sodium 141 (136-148) mmol/L Potassium 3.6 (3.5-5.1) mmol/L Chloride 105 (98-107) mmol/L Carbon Dioxide 27.2 (21.0-32.0) mmol/L BUN 16 (7.0-18.0) mg/dL Creatinine 1.4 H (0.8-1.3) mg/dL Est Cr Clr Drug Dosing 81.54 mL/min Estimated GFR (MDRD) > 60.0 ml/min Glucose 91 (74-106) mg/dL Calcium 8.3 L (8.5-10.1) mg/dL Creatine Kinase 2195 H (26-308) U/L CSF Appearance CSF Color CSF WBC (0-0.005) K/uL CSF RBC (0.0-0.0) M/uL CSF Mononuclear Cells % CSF Polymorphonuclear % CSF Glucose (40-70) mg/dL CSF Total Protein (15-45) mg/dL Acetaminophen ug/mL HIV 1&2 Ag/Ab, 4th Gen (<1.0) 09/15/17 09/15/17 09/15/17 Range/Units 10:32 10:32 11:25 WBC (4.0-11.0) K/uL RBC (4.50-5.90) M/uL Hgb (13.0-17.0) g/dL Hct (38.0-50.0) % MCV (80.0-98.0) fL MCH (27.0-32.0) pg MCHC (31.0-37.0) g/dL RDW Std Deviation (28.0-62.0) fl RDW Coeff of Elizabeth (11.0-15.0) % Plt Count (150-400) K/uL MPV (7.40-12.00) fL Neut % (Auto) (48.0-80.0) % Lymph % (Auto) (16.0-40.0) % [place] % (Auto) (0.0-15.0) % Eos % (Auto) (0.0-7.0) % Baso % (Auto) (0.0-1.5) % Neut # (Auto) (1.4-5.7) K/uL Lymph # (Auto) (0.6-2.4) K/uL [place] # (Auto) (0.0-0.8) K/uL Eos # (Auto) (0.0-0.7) K/uL Baso # (Auto) (0.0-0.1) K/uL Nucleated RBC % /100WBC Nucleated RBCs # K/uL Sodium (136-148) mmol/L Potassium (3.5-5.1) mmol/L Chloride (98-107) mmol/L Carbon Dioxide (21.0-32.0) mmol/L BUN (7.0-18.0) mg/dL Creatinine (0.8-1.3) mg/dL Est Cr Clr Drug Dosing mL/min Estimated GFR (MDRD) ml/min Glucose (74-106) mg/dL Calcium (8.5-10.1) mg/dL Creatine Kinase (26-308) U/L CSF Appearance CLEAR CSF Color COLORLESS CSF WBC 0.002 (0-0.005) K/uL CSF RBC 0.000 (0.0-0.0) M/uL CSF Mononuclear Cells 100.0 % CSF Polymorphonuclear 0.0 % CSF Glucose (40-70) mg/dL CSF Total Protein (15-45) mg/dL Acetaminophen 1.8 ug/mL HIV 1&2 Ag/Ab, 4th Gen 0.1 (<1.0) 09/15/17 Range/Units 11:25 WBC (4.0-11.0) K/uL RBC (4.50-5.90) M/uL Hgb (13.0-17.0) g/dL Hct (38.0-50.0) % MCV (80.0-98.0) fL MCH (27.0-32.0) pg MCHC (31.0-37.0) g/dL RDW Std Deviation (28.0-62.0) fl RDW Coeff of Elizabeth (11.0-15.0) % Plt Count (150-400) K/uL MPV (7.40-12.00) fL Neut % (Auto) (48.0-80.0) % Lymph % (Auto) (16.0-40.0) % [place] % (Auto) (0.0-15.0) % Eos % (Auto) (0.0-7.0) % Baso % (Auto) (0.0-1.5) % Neut # (Auto) (1.4-5.7) K/uL Lymph # (Auto) (0.6-2.4) K/uL [place] # (Auto) (0.0-0.8) K/uL Eos # (Auto) (0.0-0.7) K/uL Baso # (Auto) (0.0-0.1) K/uL Nucleated RBC % /100WBC Nucleated RBCs # K/uL Sodium (136-148) mmol/L Potassium (3.5-5.1) mmol/L Chloride (98-107) mmol/L Carbon Dioxide (21.0-32.0) mmol/L BUN (7.0-18.0) mg/dL Creatinine (0.8-1.3) mg/dL Est Cr Clr Drug Dosing mL/min Estimated GFR (MDRD) ml/min Glucose (74-106) mg/dL Calcium (8.5-10.1) mg/dL Creatine Kinase (26-308) U/L CSF Appearance CSF Color CSF WBC (0-0.005) K/uL CSF RBC (0.0-0.0) M/uL CSF Mononuclear Cells % CSF Polymorphonuclear % CSF Glucose 59.0 (40-70) mg/dL CSF Total Protein 26 (15-45) mg/dL Acetaminophen ug/mL HIV 1&2 Ag/Ab, 4th Gen (<1.0) Khoa Results Last 24 Hours: Microbiology 09/15/17 11:25 Gram Stain - Preliminary Cerebral Spinal Fluid 09/14/17 12:01 Aerobic Blood Culture - Preliminary Blood - Venous - Lab Draw NO GROWTH AFTER 1 DAY Anaerobic Blood Culture - Preliminary 09/14/17 11:50 Aerobic Blood Culture - Preliminary Blood - Venous NO GROWTH AFTER 1 DAY Anaerobic Blood Culture - Preliminary NO GROWTH AFTER 1 DAY Med Orders - Current: Current Medications Escitalopram Oxalate (Lexapro) 10 mg PO DAILY [facility] Last Admin: 09/15/17 08:10 Dose: 10 mg Sodium Chloride (Normal Saline) 1,000 mls @ 200 mls/hr IV ASDIRECTED [facility] Last Admin: 09/14/17 02:22 Dose: 70 mls/hr Lactated Ringer's (Ringers, Lactated) 1,000 mls @ 200 mls/hr IV ASDIRECTED [facility] Last Admin: 09/15/17 10:08 Dose: 200 mls/hr Acyclovir 700 mg/ Sodium (Chloride) 114 mls @ 114 mls/hr IV Q8H [facility] Last Admin: 09/15/17 10:35 Dose: 114 mls/hr Ceftriaxone Sodium/Dextrose 2 (gm/ Premix) 50 mls @ 100 mls/hr IV Q24H [facility] Levetiracetam (Keppra) 250 mg PO BID [facility] Last Admin: 09/15/17 08:10 Dose: 250 mg Lorazepam (Ativan) 2 mg IVPUSH Q4H PRN PRN Reason: agitation , restlessness Last Admin: 09/15/17 10:59 Dose: 2 mg Sodium Chloride (Saline Flush) 10 ml FLUSH ASDIRECTED PRN PRN Reason: Keep Vein Open Sodium Chloride (Saline Flush) 2.5 ml FLUSH ASDIRECTED PRN PRN Reason: Keep Vein Open Vancomycin HCl (Pharmacy To Dose - Vancomycin) 0 dose .XX ASDIRECTED [facility] Discontinued Medications Acetaminophen (Tylenol) 650 mg PO NOW ONE Stop: 09/13/17 22:14 Last Admin: 09/13/17 22:24 Dose: 650 mg Gadobutrol (Gadavist) 10 ml IVPUSH ONETIME STA Stop: 09/14/17 16:35 Last Admin: 09/14/17 16:36 Dose: 2.5 ml Sodium Chloride (Normal Saline) 1,000 mls @ 999 mls/hr IV STAT ONE Stop: 09/13/17 23:06 Last Admin: 09/13/17 22:15 Dose: 999 mls/hr Sodium Chloride (Normal Saline) 1,000 mls @ 999 mls/hr IV .Bolus ONE Stop: 09/14/17 00:20 Last Admin: 09/13/17 23:21 Dose: 999 mls/hr Magnesium Sulfate 2 gm/ Premix 50 mls @ 50 mls/hr IV ONETIME ONE Stop: 09/14/17 03:02 Last Admin: 09/14/17 02:22 Dose: 50 mls/hr Ceftriaxone Sodium/Dextrose 1 (gm/ Premix) 50 mls @ 100 mls/hr IV Q24H [facility] Last Admin: 09/15/17 12:02 Dose: 100 mls/hr Acyclovir 700 mg/ Sodium (Chloride) 114 mls @ 114 mls/hr IV Q8H [facility] Vancomycin HCl 1,750 mg/ (Sodium Chloride) 500 mls @ 250 mls/hr IV ONETIME ONE Stop: 09/15/17 15:14 Last Admin: 09/15/17 13:22 Dose: 250 mls/hr Ceftriaxone Sodium/Dextrose 1 (gm/ Premix) 50 mls @ 100 mls/hr IV Q24H [facility] Stop: 09/15/17 13:44 Last Admin: 09/15/17 15:26 Dose: 100 mls/hr Iopamidol (Isovue-300 (61%)) 50 ml IVPUSH ONETIME ONE Stop: 09/13/17 23:55 Last Admin: 09/13/17 23:55 Dose: 50 ml Levetiracetam (Keppra) 500 mg PO BID [facility] Last Admin: 09/14/17 09:58 Dose: 500 mg Levetiracetam (Keppra) 500 mg PO ONETIME ONE Stop: 09/14/17 12:01 Last Admin: 09/14/17 12:50 Dose: 500 mg Lorazepam (Ativan) 2 mg IVPUSH ONETIME ONE Stop: 09/14/17 14:03 Last Admin: 09/14/17 14:48 Dose: 2 mg Lorazepam (Ativan) 2 mg IVPUSH ONETIME ONE Stop: 09/14/17 16:50 Last Admin: 09/14/17 17:12 Dose: 2 mg Ondansetron HCl (Zofran) 4 mg IVPUSH ONETIME ONE Stop: 09/13/17 22:28 Last Admin: 09/13/17 22:32 Dose: 4 mg - Problem List & Annotations (1) Acute kidney failure SNOMED Code(s): 85900398 Code(s): N17.9 - ACUTE KIDNEY FAILURE, UNSPECIFIED Status: Acute Current Visit: Yes (2) Rhabdomyolysis SNOMED Code(s): 426265320 Code(s): M62.82 - RHABDOMYOLYSIS Status: Acute Current Visit: Yes (3) Drug use disorder SNOMED Code(s): 33335983 Code(s): F19.90 - OTHER PSYCHOACTIVE SUBSTANCE USE, UNSPECIFIED, UNCOMPLICATED Status: Acute Current Visit: Yes (4) Restlessness and agitation SNOMED Code(s): 758046076 Code(s): R45.1 - RESTLESSNESS AND AGITATION Status: Acute Current Visit: Yes - My Orders Last 24 Hours: My Active Orders 09/14/17 18:18 Dip Stand Loader Discontinue [Cardiac Monitoring Discontinue] [RC] Click to Edit 09/14/17 18:55 LORazepam [Ativan] 2 mg IVPUSH Q4H PRN Seizure Precautions [OM.PC] Routine 09/14/17 21:00 levETIRAcetam [Keppra] 250 mg PO BID 09/15/17 10:15 Acyclovir [Zovirax] 700 mg Sodium Chloride 0.9% [Normal Saline] 100 ml IV Q8H 09/15/17 13:15 Vancomycin Pharmacy to Dose [Pharmacy to Dose - Vancomycin] See Dose Instructions .XX ASDIRECTED 09/16/17 12:00 cefTRIAXone [Rocephin in Dextrose,Iso-Osm 2 GM/50 ML] 2 gm Premix Bag 1 bag IV Q24H - Plan Plan:: Mental status normal this afternoon. He is appropriate. Seen by neurologist this afternoon , recommended to increase Keppra to 750 mg po BID.F/up consult. will do quantiferon Gold for the pulmonary nodules. blood smear and blood culture anaerobic bottle show garm positive cocci in clusters. Satrted on Vancomycin as per pharmacy and rocephyn was increased to 2 grams iv daily. WBC normal today, patient afebrile, improved kidney function. Patient seen and discussed with resident , agree with assessment and plan.
--- NOTE | 2017-09-15 14:47 | CR ---
EXAMINATION: Fluoroscopic-guided lumbar puncture HISTORY: Possible encephalitis COMPARISON: None TECHNIQUE: The procedure, risks, and benefits were discussed with the patient. Written informed conse nt was obtained. The lower back was sterilely prepped and draped using Betadine. 1% lidocaine was adm inistered. Using fluoroscopic guidance a 22-gauge blunt tip needle was advanced at the L3-L4 level. C SF return was noted and collected. The patient tolerated the procedure well. No immediate complicatio ns. IMPRESSION: Successful fluoroscopic guided lumbar puncture with clear nonbloody fluid collected.
--- NOTE | 2017-09-15 16:33 | PCM.CONS ---
H&P History of Present Illness - General Date of Service: 09/15/17 Admit Problem/Dx: Admission Diagnosis/Problem Admission Diagnosis/Problem Dehydration seizure - History of Present Illness Initial Comments - Free Text/Narative: 22 year old man admitted on September 13 with confusion, episode of abnormal motor activity. History is taken from the patient and the chart, as he has poor recall of the events leading to admission. He notes that he flew from [place] to [place], and then drove with his [id number] to [place] for a job. He recalls looking around the apartment complex for [id number]'s apartment. Apparently, he walked in to somebody else's apartment, and tenants called the police. His [id number] then found him whole-body stiffening, unresponsive for about minute. He reports that he was vomiting on the trip from [place] to [place]. On day one and day 2 of hospital stay, he intermittently would say inappropriate things. He also would have no recall of a conversation he had with the provider her nurse. He has pulled out his IV, and was moving during the MRI yesterday. He reports that he has similar event in 2016. He does not know the details, but he recalls waking up in an ambulance. He was hospitalized about a day and a half He was living in [facility] at the time, and was seen by a neurologist. He underwent an EEG and MRI. He doesn't believe anything was found , but he was started briefly on a seizure medication. He stopped taking the seizure medication because it made him angry. He does not think the medication was Keppra or levetiracetam No family history of seizures. 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 denies pain Pain Score (Numeric/FACES): 0 - Related Data Allergies/Adverse Reactions: Allergies Allergy/AdvReac Type Severity Reaction Status Date / Time No Known Allergies Allergy Verified 09/13/17 21:55 Home Medications: Home Meds . [No Known Home Meds] 09/13/17 [History] Past Medical History Neurological History: Reports: Seizure Social & Family History - Family History Family Medical History: Noncontributory (no seizure) - Tobacco Use Smoking Status *Q: Never Smoker Second Hand Smoke Exposure: Yes - Caffeine Use Caffeine Use: Reports: Coffee, Energy Drinks - Recreational Drug Use Recreational Drug Use: No H&P Review of Systems - Review of Systems: Review Of Systems: ROS reveals no pertinent complaints other than HPI. Exam - Exam Exam: See Below - Vital Signs Vital Signs: Last Vital Signs Temp 37.4 C 09/15/17 12:00 Pulse 65 09/15/17 12:00 Resp 18 09/15/17 12:00 BP 134/63 09/15/17 12:00 Pulse Ox 96 09/15/17 12:00 Weight: 70.851 kg - Exam Physical Exam Comments:: Constitutional: No acute distress Psychiatric: Mood/Affect: normal/appropriate Neurological: Mental Status: General: Normal activity, good hygiene, appropriate appearance. Level of consciousness: Awake, alert. Orientation: Oriented to person, place Concentration/Attention Span: Normal. Comprehension/Praxis: Able to perform a three step command. Language: Fluent and articulate without evidence of aphasia or dysarthria. Thought Content: Normal. Insight/Judgement: Normal. Cranial Nerves: Pupils equally round and reactive to light. Visual ann full to confrontation. Gaze conjugate, EOMI. Sensation intact and symmetric to light touch. Facial strength is full and symmetric. Palate elevates symmetrically. Normal shrug bilaterally. Tongue protrudes midline Motor: Normal tone in all groups. No drift. Power is 5/5 throughout proximal and distal muscles. Sensation: Sensation is intact to pinprick, vibratory sense . Deep tendon reflexes: Normoactive throughout. Plantar responses are flexor bilaterally. Coordination: Finger to nose, heel to alfred and rapid alternating movements are intact. HEENT: Eyes: non icteric, Mouth: moist mucus membranes Cardiovascular: RRR, no obvious murmur Respiratory: clear lungs GI: non tender Musculoskeletal: non tender Skin: no visible rash - Patient Data Lab Results Last 24 hrs: Laboratory Results - last 24 hr 09/15/17 09/15/17 09/15/17 Range/Units 04:45 04:45 04:45 WBC 9.68 (4.0-11.0) K/uL RBC 4.01 L (4.50-5.90) M/uL Hgb 12.0 L (13.0-17.0) g/dL Hct 35.2 L (38.0-50.0) % MCV 87.8 (80.0-98.0) fL MCH 29.9 (27.0-32.0) pg MCHC 34.1 (31.0-37.0) g/dL RDW Std Deviation 37.7 (28.0-62.0) fl RDW Coeff of Elizabeth 12 (11.0-15.0) % Plt Count 183 (150-400) K/uL MPV 10.70 (7.40-12.00) fL Neut % (Auto) 68.1 (48.0-80.0) % Lymph % (Auto) 15.1 L (16.0-40.0) % Cavalier % (Auto) 16.6 H (0.0-15.0) % Eos % (Auto) 0.0 (0.0-7.0) % Baso % (Auto) 0.2 (0.0-1.5) % Neut # (Auto) 6.6 H (1.4-5.7) K/uL Lymph # (Auto) 1.5 (0.6-2.4) K/uL Cavalier # (Auto) 1.6 H (0.0-0.8) K/uL Eos # (Auto) 0.0 (0.0-0.7) K/uL Baso # (Auto) 0.0 (0.0-0.1) K/uL Nucleated RBC % 0.0 /100WBC Nucleated RBCs # 0 K/uL Sodium 141 (136-148) mmol/L Potassium 3.6 (3.5-5.1) mmol/L Chloride 105 (98-107) mmol/L Carbon Dioxide 27.2 (21.0-32.0) mmol/L BUN 16 (7.0-18.0) mg/dL Creatinine 1.4 H (0.8-1.3) mg/dL Est Cr Clr Drug Dosing 81.54 mL/min Estimated GFR (MDRD) > 60.0 ml/min Glucose 91 (74-106) mg/dL Calcium 8.3 L (8.5-10.1) mg/dL Creatine Kinase 2195 H (26-308) U/L CSF Appearance CSF Color CSF WBC (0-0.005) K/uL CSF RBC (0.0-0.0) M/uL CSF Mononuclear Cells % CSF Polymorphonuclear % CSF Glucose (40-70) mg/dL CSF Total Protein (15-45) mg/dL Acetaminophen ug/mL HIV 1&2 Ag/Ab, 4th Gen (<1.0) 09/15/17 09/15/17 09/15/17 Range/Units 10:32 10:32 11:25 WBC (4.0-11.0) K/uL RBC (4.50-5.90) M/uL Hgb (13.0-17.0) g/dL Hct (38.0-50.0) % MCV (80.0-98.0) fL MCH (27.0-32.0) pg MCHC (31.0-37.0) g/dL RDW Std Deviation (28.0-62.0) fl RDW Coeff of Elizabeth (11.0-15.0) % Plt Count (150-400) K/uL MPV (7.40-12.00) fL Neut % (Auto) (48.0-80.0) % Lymph % (Auto) (16.0-40.0) % Cavalier % (Auto) (0.0-15.0) % Eos % (Auto) (0.0-7.0) % Baso % (Auto) (0.0-1.5) % Neut # (Auto) (1.4-5.7) K/uL Lymph # (Auto) (0.6-2.4) K/uL Cavalier # (Auto) (0.0-0.8) K/uL Eos # (Auto) (0.0-0.7) K/uL Baso # (Auto) (0.0-0.1) K/uL Nucleated RBC % /100WBC Nucleated RBCs # K/uL Sodium (136-148) mmol/L Potassium (3.5-5.1) mmol/L Chloride (98-107) mmol/L Carbon Dioxide (21.0-32.0) mmol/L BUN (7.0-18.0) mg/dL Creatinine (0.8-1.3) mg/dL Est Cr Clr Drug Dosing mL/min Estimated GFR (MDRD) ml/min Glucose (74-106) mg/dL Calcium (8.5-10.1) mg/dL Creatine Kinase (26-308) U/L CSF Appearance CLEAR CSF Color COLORLESS CSF WBC 0.002 (0-0.005) K/uL CSF RBC 0.000 (0.0-0.0) M/uL CSF Mononuclear Cells 100.0 % CSF Polymorphonuclear 0.0 % CSF Glucose (40-70) mg/dL CSF Total Protein (15-45) mg/dL Acetaminophen 1.8 ug/mL HIV 1&2 Ag/Ab, 4th Gen 0.1 (<1.0) 09/15/17 Range/Units 11:25 WBC (4.0-11.0) K/uL RBC (4.50-5.90) M/uL Hgb (13.0-17.0) g/dL Hct (38.0-50.0) % MCV (80.0-98.0) fL MCH (27.0-32.0) pg MCHC (31.0-37.0) g/dL RDW Std Deviation (28.0-62.0) fl RDW Coeff of Elizabeth (11.0-15.0) % Plt Count (150-400) K/uL MPV (7.40-12.00) fL Neut % (Auto) (48.0-80.0) % Lymph % (Auto) (16.0-40.0) % Cavalier % (Auto) (0.0-15.0) % Eos % (Auto) (0.0-7.0) % Baso % (Auto) (0.0-1.5) % Neut # (Auto) (1.4-5.7) K/uL Lymph # (Auto) (0.6-2.4) K/uL Cavalier # (Auto) (0.0-0.8) K/uL Eos # (Auto) (0.0-0.7) K/uL Baso # (Auto) (0.0-0.1) K/uL Nucleated RBC % /100WBC Nucleated RBCs # K/uL Sodium (136-148) mmol/L Potassium (3.5-5.1) mmol/L Chloride (98-107) mmol/L Carbon Dioxide (21.0-32.0) mmol/L BUN (7.0-18.0) mg/dL Creatinine (0.8-1.3) mg/dL Est Cr Clr Drug Dosing mL/min Estimated GFR (MDRD) ml/min Glucose (74-106) mg/dL Calcium (8.5-10.1) mg/dL Creatine Kinase (26-308) U/L CSF Appearance CSF Color CSF WBC (0-0.005) K/uL CSF RBC (0.0-0.0) M/uL CSF Mononuclear Cells % CSF Polymorphonuclear % CSF Glucose 59.0 (40-70) mg/dL CSF Total Protein 26 (15-45) mg/dL Acetaminophen ug/mL HIV 1&2 Ag/Ab, 4th Gen (<1.0) Result Diagrams: 09/15/17 04:45 09/15/17 04:45 Khoa Results Last 24 hrs: Microbiology 09/15/17 11:25 Gram Stain - Preliminary Cerebral Spinal Fluid 09/14/17 12:01 Aerobic Blood Culture - Preliminary Blood - Venous - Lab Draw NO GROWTH AFTER 1 DAY Anaerobic Blood Culture - Preliminary 09/14/17 11:50 Aerobic Blood Culture - Preliminary Blood - Venous NO GROWTH AFTER 1 DAY Anaerobic Blood Culture - Preliminary NO GROWTH AFTER 1 DAY Imaging Impressions Last 24 hrs: CT head 09/13/2017 was normal Labs 09/13/2017 U tox negative, ETOH negative, UA trace protein, prolactin 7, TSH normal, BUN 19, Cr 1.9, Mg 1.7 CK 623->1390->2195 Blood WBC 17.5->->9.68 Blood gram stain gram positive cocci CT A/P 09/13/2017 pulmonary nodules MRI brain 09/14/2017 w/o contrast T2 hyperintense area in medial left temporal lobe and inferior frontal lobe CSF 09/13/2017 2 WBC, 0 WBC, protein 26, glucose 59 Consult PN Assessment/Plan Problem List Initiated/Reviewed/Updated: Yes Plan: 22 year old man admitted with suspected seizure, altered mental status, hyperCKemia, renal insufficiency. MRI showed signal change concerning for herpes encephalitis or other encephalitis, but CSF protein/cell count were normal, rendering CSF infection unlikely. Also, his mental status has improved over the last 48 hours, which argues against encephalitis as well. Seizures can provoke abnormalities on MRI, which I suspect is the case. He had only one brief witnessed tonic spell, but given his waxing and waning mental status and MRI findings, I suspect he was having additional subclinical events. If he were to wax and wane, he would need to be transferred to where he could undergo inpatient EEG. Recommendations: -increase Keppra to 750 mg BID (renal function improving) -f/u Marie autoimmune encephalitis panel -He needs neurology follow up after discharge, and I would recommend EEG as an outpatient as well as MRI in 4-6 weeks to make sure MRI findings resolve. It doesnt sound like he is staying in [place], so he will need to establish with neurologist in [place] -Safety precautions following seizure discussed with him particularly driving restrictions discussed. In [place], it is 6 months. According epilepsy foundation website, Sarah is at least 6 months as well.
[2017-09-16] MEDS: Lactated Ringers 1,000 ML IV SCH ×4 (04:29→22:31)
[2017-09-16 06:19] LABS: CHLORIDE,CL 105 mmol/L (98-107); SODIUM,NA 142 mmol/L (136-148)
[2017-09-16] MEDS ORDERED: Sodium Chloride 0.9% 1,000 ML IV ONE (09:19)
[2017-09-16] MEDS: levETIRAcetam 500 MG Tab PO SCH ×2 (10:00→21:37)
[2017-09-16] MEDS: Escitalopram 10 MG Tab PO SCH (10:21)
--- NOTE | 2017-09-16 11:25 | PCM.PN ---
<Tan Reyes - Last Filed: 09/16/17 11:08> - General Info Date of Service: 09/16/17 Subjective Update: Has no complaints aside from mild back discomfort at the LP site. No headache, nausea, vomiting. Appears to be less confused. He hasn't been eating much saying he doesn't have much of an appetite, but feels fine. Denies muscle soreness. As per nursing staff, he ripped out his IV again last night though. Functional Status: Reports: Pain Controlled - Review of Systems General: Reports: Other (see hpi) - Patient Data Vitals - Most Recent: Last Vital Signs Temp 36.4 C 09/16/17 08:00 Pulse 52 L 09/16/17 08:00 Resp 20 09/16/17 08:00 BP 133/74 09/16/17 08:00 Pulse Ox 96 09/16/17 08:00 Weight - Most Recent: 156 lb 3.2 oz I&O - Last 24 Hours: Intake & Output 09/15/17 09/16/17 09/16/17 22:59 06:59 14:59 Intake Total 2882 1750 Output Total 700 400 Balance 2182 1350 Lab Results Last 24 Hours: Laboratory Results - last 24 hr 09/15/17 09/15/17 09/15/17 Range/Units 10:32 10:32 11:25 WBC (4.0-11.0) K/uL RBC (4.50-5.90) M/uL Hgb (13.0-17.0) g/dL Hct (38.0-50.0) % MCV (80.0-98.0) fL MCH (27.0-32.0) pg MCHC (31.0-37.0) g/dL RDW Std Deviation (28.0-62.0) fl RDW Coeff of Elizabeth (11.0-15.0) % Plt Count (150-400) K/uL MPV (7.40-12.00) fL Neut % (Auto) (48.0-80.0) % Lymph % (Auto) (16.0-40.0) % [place] % (Auto) (0.0-15.0) % Eos % (Auto) (0.0-7.0) % Baso % (Auto) (0.0-1.5) % Neut # (Auto) (1.4-5.7) K/uL Lymph # (Auto) (0.6-2.4) K/uL [place] # (Auto) (0.0-0.8) K/uL Eos # (Auto) (0.0-0.7) K/uL Baso # (Auto) (0.0-0.1) K/uL Sodium (136-148) mmol/L Potassium (3.5-5.1) mmol/L Chloride (98-107) mmol/L Carbon Dioxide (21.0-32.0) mmol/L BUN (7.0-18.0) mg/dL Creatinine (0.8-1.3) mg/dL Est Cr Clr Drug Dosing mL/min Estimated GFR (MDRD) ml/min Glucose (74-106) mg/dL Calcium (8.5-10.1) mg/dL Total Bilirubin (0.2-1.0) mg/dL AST (15-37) IU/L ALT (14-63) IU/L Alkaline Phosphatase (46-116) U/L Creatine Kinase (26-308) U/L Total Protein (6.4-8.2) g/dL Albumin (3.4-5.0) g/dL Globulin (2.0-3.5) g/dL Albumin/Globulin Ratio (1.3-2.8) CSF Appearance CLEAR CSF Color COLORLESS CSF WBC 0.002 (0-0.005) K/uL CSF RBC 0.000 (0.0-0.0) M/uL CSF Mononuclear Cells 100.0 % CSF Polymorphonuclear 0.0 % CSF Glucose (40-70) mg/dL CSF Total Protein (15-45) mg/dL Acetaminophen 1.8 ug/mL HIV 1&2 Ag/Ab, 4th Gen 0.1 (<1.0) 09/15/17 09/16/17 09/16/17 Range/Units 11:25 04:58 04:58 WBC 8.66 (4.0-11.0) K/uL RBC 4.41 L (4.50-5.90) M/uL Hgb 13.2 (13.0-17.0) g/dL Hct 38.9 (38.0-50.0) % MCV 88.2 (80.0-98.0) fL MCH 29.9 (27.0-32.0) pg MCHC 33.9 (31.0-37.0) g/dL RDW Std Deviation 34.6 (28.0-62.0) fl RDW Coeff of Elizabeth 11 (11.0-15.0) % Plt Count 196 (150-400) K/uL MPV 12.10 H (7.40-12.00) fL Neut % (Auto) 61.7 (48.0-80.0) % Lymph % (Auto) 25.2 (16.0-40.0) % [place] % (Auto) 12.8 (0.0-15.0) % Eos % (Auto) 0.2 (0.0-7.0) % Baso % (Auto) 0.1 (0.0-1.5) % Neut # (Auto) 5.3 (1.4-5.7) K/uL Lymph # (Auto) 2.2 (0.6-2.4) K/uL [place] # (Auto) 1.1 H (0.0-0.8) K/uL Eos # (Auto) 0.0 (0.0-0.7) K/uL Baso # (Auto) 0.0 (0.0-0.1) K/uL Sodium 142 (136-148) mmol/L Potassium 3.6 (3.5-5.1) mmol/L Chloride 105 (98-107) mmol/L Carbon Dioxide 29.5 (21.0-32.0) mmol/L BUN 13 (7.0-18.0) mg/dL Creatinine 1.3 (0.8-1.3) mg/dL Est Cr Clr Drug Dosing 87.81 mL/min Estimated GFR (MDRD) > 60.0 ml/min Glucose 89 (74-106) mg/dL Calcium 8.6 (8.5-10.1) mg/dL Total Bilirubin 0.4 (0.2-1.0) mg/dL AST 124 H (15-37) IU/L ALT 51 (14-63) IU/L Alkaline Phosphatase 46 (46-116) U/L Creatine Kinase 5802 H (26-308) U/L Total Protein 6.7 (6.4-8.2) g/dL Albumin 3.5 (3.4-5.0) g/dL Globulin 3.2 (2.0-3.5) g/dL Albumin/Globulin Ratio 1.1 L (1.3-2.8) CSF Appearance CSF Color CSF WBC (0-0.005) K/uL CSF RBC (0.0-0.0) M/uL CSF Mononuclear Cells % CSF Polymorphonuclear % CSF Glucose 59.0 (40-70) mg/dL CSF Total Protein 26 (15-45) mg/dL Acetaminophen ug/mL HIV 1&2 Ag/Ab, 4th Gen (<1.0) Khoa Results Last 24 Hours: Microbiology 09/14/17 12:01 Aerobic Blood Culture - Preliminary Blood - Venous - Lab Draw NO GROWTH AFTER 1 DAY Anaerobic Blood Culture - Preliminary 09/15/17 11:25 Gram Stain - Final Cerebral Spinal Fluid CSF Culture - Preliminary NO GROWTH AFTER 1 DAY 09/14/17 00:15 Urine Culture - Final Urine, Clean Catch No Growth 09/14/17 11:50 Aerobic Blood Culture - Preliminary Blood - Venous NO GROWTH AFTER 1 DAY Anaerobic Blood Culture - Preliminary NO GROWTH AFTER 1 DAY Med Orders - Current: Current Medications Escitalopram Oxalate (Lexapro) 10 mg PO DAILY [facility] Last Admin: 09/16/17 10:21 Dose: 10 mg Lactated Ringer's (Ringers, Lactated) 1,000 mls @ 200 mls/hr IV ASDIRECTED [facility] Last Admin: 09/16/17 04:29 Dose: 200 mls/hr Levetiracetam (Keppra) 750 mg PO BID [facility] Last Admin: 09/16/17 10:00 Dose: 750 mg Lorazepam (Ativan) 2 mg IVPUSH Q4H PRN PRN Reason: agitation , restlessness Last Admin: 09/15/17 10:59 Dose: 2 mg Sodium Chloride (Saline Flush) 10 ml FLUSH ASDIRECTED PRN PRN Reason: Keep Vein Open Sodium Chloride (Saline Flush) 2.5 ml FLUSH ASDIRECTED PRN PRN Reason: Keep Vein Open Discontinued Medications Acetaminophen (Tylenol) 650 mg PO NOW ONE Stop: 09/13/17 22:14 Last Admin: 09/13/17 22:24 Dose: 650 mg Gadobutrol (Gadavist) 10 ml IVPUSH ONETIME STA Stop: 09/14/17 16:35 Last Admin: 09/14/17 16:36 Dose: 2.5 ml Sodium Chloride (Normal Saline) 1,000 mls @ 999 mls/hr IV STAT ONE Stop: 09/13/17 23:06 Last Admin: 09/13/17 22:15 Dose: 999 mls/hr Sodium Chloride (Normal Saline) 1,000 mls @ 999 mls/hr IV .Bolus ONE Stop: 09/14/17 00:20 Last Admin: 09/13/17 23:21 Dose: 999 mls/hr Magnesium Sulfate 2 gm/ Premix 50 mls @ 50 mls/hr IV ONETIME ONE Stop: 09/14/17 03:02 Last Admin: 09/14/17 02:22 Dose: 50 mls/hr Sodium Chloride (Normal Saline) 1,000 mls @ 200 mls/hr IV ASDIRECTED [facility] Last Admin: 09/14/17 02:22 Dose: 70 mls/hr Ceftriaxone Sodium/Dextrose 1 (gm/ Premix) 50 mls @ 100 mls/hr IV Q24H [facility] Last Admin: 09/15/17 12:02 Dose: 100 mls/hr Acyclovir 700 mg/ Sodium (Chloride) 114 mls @ 114 mls/hr IV Q8H [facility] Acyclovir 700 mg/ Sodium (Chloride) 114 mls @ 114 mls/hr IV Q8H [facility] Last Admin: 09/16/17 02:22 Dose: 114 mls/hr Vancomycin HCl 1,750 mg/ (Sodium Chloride) 500 mls @ 250 mls/hr IV ONETIME ONE Stop: 09/15/17 15:14 Last Admin: 09/15/17 13:22 Dose: 250 mls/hr Ceftriaxone Sodium/Dextrose 1 (gm/ Premix) 50 mls @ 100 mls/hr IV Q24H [facility] Stop: 09/15/17 13:44 Last Admin: 09/15/17 15:26 Dose: 100 mls/hr Ceftriaxone Sodium/Dextrose 2 (gm/ Premix) 50 mls @ 100 mls/hr IV Q24H [facility] Vancomycin HCl 1 gm/ Sodium (Chloride) 250 mls @ 166 mls/hr IV Q12H [facility] Last Admin: 09/16/17 00:45 Dose: 166 mls/hr Sodium Chloride (Normal Saline) 1,000 mls @ 999 mls/hr IV STAT ONE Stop: 09/16/17 10:19 Last Admin: 09/16/17 10:19 Dose: 999 mls/hr Iopamidol (Isovue-300 (61%)) 50 ml IVPUSH ONETIME ONE Stop: 09/13/17 23:55 Last Admin: 09/13/17 23:55 Dose: 50 ml Levetiracetam (Keppra) 500 mg PO BID [facility] Last Admin: 09/14/17 09:58 Dose: 500 mg Levetiracetam (Keppra) 500 mg PO ONETIME ONE Stop: 09/14/17 12:01 Last Admin: 09/14/17 12:50 Dose: 500 mg Levetiracetam (Keppra) 250 mg PO BID [facility] Last Admin: 09/15/17 20:43 Dose: 250 mg Lorazepam (Ativan) 2 mg IVPUSH ONETIME ONE Stop: 09/14/17 14:03 Last Admin: 09/14/17 14:48 Dose: 2 mg Lorazepam (Ativan) 2 mg IVPUSH ONETIME ONE Stop: 09/14/17 16:50 Last Admin: 09/14/17 17:12 Dose: 2 mg Ondansetron HCl (Zofran) 4 mg IVPUSH ONETIME ONE Stop: 09/13/17 22:28 Last Admin: 09/13/17 22:32 Dose: 4 mg Vancomycin HCl (Pharmacy To Dose - Vancomycin) 0 dose .XX ASDIRECTED [facility] - Exam General: Alert, Oriented HEENT: Pupils Equal Neck: Supple Lungs: Clear to Auscultation, Normal Respiratory Effort Cardiovascular: Regular Rate, Regular Rhythm GI/Abdominal Exam: Normal Bowel Sounds, Soft, Non-Tender, No Organomegaly, No Distention, No Abnormal Bruit, No Mass, Pelvis Stable (Male) Exam: No Hernia, Normal Inspection, Normal Prostate, Circumcised Back Exam: Normal Inspection, Full Range of Motion Extremities: Normal Inspection, Normal Range of Motion, Non-Tender, No Pedal Edema, Normal Capillary Refill Peripheral Pulses: 2+: Dorsalis Pedis (L), Dorsalis Pedis (R) Skin: Warm Wound/Incisions: Healing Well Neurological: No New Focal Deficit Psy/Mental Status: Alert, Normal Affect, Normal Mood. No: Agitated, Suicidal Ideation - Problem List Review Problem List Initiated/Reviewed/Updated: Yes - My Orders Last 24 Hours: My Active Orders 09/15/17 10:32 LEANA W/REFLEX [REF] Routine HSV TYPE SPECIFIC IMMUNOBLOT [REF] Routine [place] VIRUS ANTIBODY,SERUM [REF] Routine 09/15/17 11:25 CELL COUNT,CSF [BF] Routine CULTURE CSF + SMEAR [RM] Routine GLUCOSE,CSF [BF] Routine PROTEIN,CSF [BF] Routine VDRL, CSF Routine 09/16/17 09:22 CMP [COMPREHENSIVE METABOLIC PN,CMP] [CHEM] Routine 09/16/17 09:23 UA W/MICROSCOPIC [URIN] Stat 09/16/17 10:15 Abdomen Ltd [US] Routine 09/16/17 11:03 EEG Awake Drowsy [RC] ROUTINE 09/17/17 05:11 COMPREHENSIVE METABOLIC PN,CMP [CHEM] AM CREATINE KINASE,CK [CHEM] AM 09/18/17 05:11 COMPREHENSIVE METABOLIC PN,CMP [CHEM] AM CREATINE KINASE,CK [CHEM] AM 09/19/17 05:11 COMPREHENSIVE METABOLIC PN,CMP [CHEM] AM CREATINE KINASE,CK [CHEM] AM - Plan Plan:: Assessment: #1. Altered mental status - improving #2. HyperCKemia #3. Transaminitis #4. History of alcohol abuse #5. STUART - resolved Plan: #1. Given that his CK has more than doubled, I will give 1 more bolus of NS, continue the LR at 200mL/h. There is not a clear reason for this continuing elevation. This could possibly be secondary to continued seizures, but unlikely because a significant rise like this would likely mean further tonic clonic seizures which haven't been witnessed. We will do a spot EEG for evaluation. #2. Will obtain hepatitis, panel, RUQ US for elevated LFT. #3. thiamine, folic acid for strong suspicion of alcohol abuse. He tells me he went on vacation to [place], ate seafood but that didnt cause any issues. While travelling here he began to vomit, but that was secondary to motion sickness according to him. #4. I went and spoke to the patient again, and he tells me that his dad is coming to pick him up and he wants to leave the hospital because of insurance issues. We'll have social work see the patient. <Beryl Kerns - Last Filed: 09/16/17 14:03> - Patient Data Vitals - Most Recent: Last Vital Signs Temp 98.4 F 09/16/17 11:41 Pulse 53 L 09/16/17 11:41 Resp 18 09/16/17 11:41 BP 142/81 H 09/16/17 11:41 Pulse Ox 96 09/16/17 11:41 I&O - Last 24 Hours: Intake & Output 09/15/17 09/16/17 09/16/17 22:59 06:59 14:59 Intake Total 2882 1750 Output Total 700 400 Balance 2182 1350 Lab Results Last 24 Hours: Laboratory Results - last 24 hr 09/15/17 09/16/17 09/16/17 Range/Units 10:32 04:58 04:58 WBC 8.66 (4.0-11.0) K/uL RBC 4.41 L (4.50-5.90) M/uL Hgb 13.2 (13.0-17.0) g/dL Hct 38.9 (38.0-50.0) % MCV 88.2 (80.0-98.0) fL MCH 29.9 (27.0-32.0) pg MCHC 33.9 (31.0-37.0) g/dL RDW Std Deviation 34.6 (28.0-62.0) fl RDW Coeff of [place] 11 (11.0-15.0) % Plt Count 196 (150-400) K/uL MPV 12.10 H (7.40-12.00) fL Neut % (Auto) 61.7 (48.0-80.0) % Lymph % (Auto) 25.2 (16.0-40.0) % [place] % (Auto) 12.8 (0.0-15.0) % Eos % (Auto) 0.2 (0.0-7.0) % Baso % (Auto) 0.1 (0.0-1.5) % Neut # (Auto) 5.3 (1.4-5.7) K/uL Lymph # (Auto) 2.2 (0.6-2.4) K/uL [place] # (Auto) 1.1 H (0.0-0.8) K/uL Eos # (Auto) 0.0 (0.0-0.7) K/uL Baso # (Auto) 0.0 (0.0-0.1) K/uL Sodium 142 (136-148) mmol/L Potassium 3.6 (3.5-5.1) mmol/L Chloride 105 (98-107) mmol/L Carbon Dioxide 29.5 (21.0-32.0) mmol/L BUN 13 (7.0-18.0) mg/dL Creatinine 1.3 (0.8-1.3) mg/dL Est Cr Clr Drug Dosing 87.81 mL/min Estimated GFR (MDRD) > 60.0 ml/min Glucose 89 (74-106) mg/dL Calcium 8.6 (8.5-10.1) mg/dL Total Bilirubin 0.4 (0.2-1.0) mg/dL AST 124 H (15-37) IU/L ALT 51 (14-63) IU/L Alkaline Phosphatase 46 (46-116) U/L Creatine Kinase 5802 H (26-308) U/L Total Protein 6.7 (6.4-8.2) g/dL Albumin 3.5 (3.4-5.0) g/dL Globulin 3.2 (2.0-3.5) g/dL Albumin/Globulin Ratio 1.1 L (1.3-2.8) Urine Color Urine Appearance Urine pH (5.0-8.0) Ur Specific [place] (1.001-1.035) Urine Protein (NEGATIVE) mg/dL Urine Glucose (UA) (NEGATIVE) mg/dL Urine Ketones (NEGATIVE) mg/dL Urine Occult Blood (NEGATIVE) Urine Nitrite (NEGATIVE) Urine Bilirubin (NEGATIVE) Urine Urobilinogen (<2.0) EU/dL Ur Leukocyte Esterase (NEGATIVE) Urine RBC (0-2/HPF) Urine WBC (0-5/HPF) Ur Epithelial Cells (NONE-FEW) Urine Bacteria (NEGATIVE) HIV 1&2 Ag/Ab, 4th Gen 0.1 (<1.0) 09/16/17 Range/Units 11:05 WBC (4.0-11.0) K/uL RBC (4.50-5.90) M/uL Hgb (13.0-17.0) g/dL Hct (38.0-50.0) % MCV (80.0-98.0) fL MCH (27.0-32.0) pg MCHC (31.0-37.0) g/dL RDW Std Deviation (28.0-62.0) fl RDW Coeff of [place] (11.0-15.0) % Plt Count (150-400) K/uL MPV (7.40-12.00) fL Neut % (Auto) (48.0-80.0) % Lymph % (Auto) (16.0-40.0) % [place] % (Auto) (0.0-15.0) % Eos % (Auto) (0.0-7.0) % Baso % (Auto) (0.0-1.5) % Neut # (Auto) (1.4-5.7) K/uL Lymph # (Auto) (0.6-2.4) K/uL [place] # (Auto) (0.0-0.8) K/uL Eos # (Auto) (0.0-0.7) K/uL Baso # (Auto) (0.0-0.1) K/uL Sodium (136-148) mmol/L Potassium (3.5-5.1) mmol/L Chloride (98-107) mmol/L Carbon Dioxide (21.0-32.0) mmol/L BUN (7.0-18.0) mg/dL Creatinine (0.8-1.3) mg/dL Est Cr Clr Drug Dosing mL/min Estimated GFR (MDRD) ml/min Glucose (74-106) mg/dL Calcium (8.5-10.1) mg/dL Total Bilirubin (0.2-1.0) mg/dL AST (15-37) IU/L ALT (14-63) IU/L Alkaline Phosphatase (46-116) U/L Creatine Kinase (26-308) U/L Total Protein (6.4-8.2) g/dL Albumin (3.4-5.0) g/dL Globulin (2.0-3.5) g/dL Albumin/Globulin Ratio (1.3-2.8) Urine Color YELLOW Urine Appearance CLEAR Urine pH 6.5 (5.0-8.0) Ur Specific [place] 1.010 (1.001-1.035) Urine Protein NEGATIVE (NEGATIVE) mg/dL Urine Glucose (UA) NEGATIVE (NEGATIVE) mg/dL Urine Ketones 15 H (NEGATIVE) mg/dL Urine Occult Blood TRACE-INTACT (NEGATIVE) Urine Nitrite NEGATIVE (NEGATIVE) Urine Bilirubin NEGATIVE (NEGATIVE) Urine Urobilinogen 0.2 (<2.0) EU/dL Ur Leukocyte Esterase NEGATIVE (NEGATIVE) Urine RBC NONE SEEN (0-2/HPF) Urine WBC 0-1 (0-5/HPF) Ur Epithelial Cells RARE (NONE-FEW) Urine Bacteria RARE (NEGATIVE) HIV 1&2 Ag/Ab, 4th Gen (<1.0) Khoa Results Last 24 Hours: Microbiology 09/14/17 12:01 Aerobic Blood Culture - Preliminary Blood - Venous - Lab Draw NO GROWTH AFTER 2 DAYS Anaerobic Blood Culture - Preliminary 09/14/17 11:50 Aerobic Blood Culture - Preliminary Blood - Venous NO GROWTH AFTER 2 DAYS Anaerobic Blood Culture - Preliminary NO GROWTH AFTER 2 DAYS 09/15/17 11:25 Gram Stain - Final Cerebral Spinal Fluid CSF Culture - Preliminary NO GROWTH AFTER 1 DAY 09/14/17 00:15 Urine Culture - Final Urine, Clean Catch No Growth Med Orders - Current: Current Medications Escitalopram Oxalate (Lexapro) 10 mg PO DAILY [facility] Last Admin: 09/16/17 10:21 Dose: 10 mg Folic Acid (Folic Acid) 1 mg PO DAILY [facility] Last Admin: 09/16/17 12:24 Dose: 1 mg Lactated Ringer's (Ringers, Lactated) 1,000 mls @ 200 mls/hr IV ASDIRECTED [facility] Last Admin: 09/16/17 11:36 Dose: 200 mls/hr Levetiracetam (Keppra) 750 mg PO BID [facility] Last Admin: 09/16/17 10:00 Dose: 750 mg Lorazepam (Ativan) 2 mg IVPUSH Q4H PRN PRN Reason: agitation , restlessness Last Admin: 09/15/17 10:59 Dose: 2 mg Sodium Chloride (Saline Flush) 10 ml FLUSH ASDIRECTED PRN PRN Reason: Keep Vein Open Sodium Chloride (Saline Flush) 2.5 ml FLUSH ASDIRECTED PRN PRN Reason: Keep Vein Open Discontinued Medications Acetaminophen (Tylenol) 650 mg PO NOW ONE Stop: 09/13/17 22:14 Last Admin: 09/13/17 22:24 Dose: 650 mg Gadobutrol (Gadavist) 10 ml IVPUSH ONETIME STA Stop: 09/14/17 16:35 Last Admin: 09/14/17 16:36 Dose: 2.5 ml Sodium Chloride (Normal Saline) 1,000 mls @ 999 mls/hr IV STAT ONE Stop: 09/13/17 23:06 Last Admin: 09/13/17 22:15 Dose: 999 mls/hr Sodium Chloride (Normal Saline) 1,000 mls @ 999 mls/hr IV .Bolus ONE Stop: 09/14/17 00:20 Last Admin: 09/13/17 23:21 Dose: 999 mls/hr Magnesium Sulfate 2 gm/ Premix 50 mls @ 50 mls/hr IV ONETIME ONE Stop: 09/14/17 03:02 Last Admin: 09/14/17 02:22 Dose: 50 mls/hr Sodium Chloride (Normal Saline) 1,000 mls @ 200 mls/hr IV ASDIRECTED [facility] Last Admin: 09/14/17 02:22 Dose: 70 mls/hr Ceftriaxone Sodium/Dextrose 1 (gm/ Premix) 50 mls @ 100 mls/hr IV Q24H [facility] Last Admin: 09/15/17 12:02 Dose: 100 mls/hr Acyclovir 700 mg/ Sodium (Chloride) 114 mls @ 114 mls/hr IV Q8H [facility] Acyclovir 700 mg/ Sodium (Chloride) 114 mls @ 114 mls/hr IV Q8H [facility] Last Admin: 09/16/17 11:35 Dose: Not Given Vancomycin HCl 1,750 mg/ (Sodium Chloride) 500 mls @ 250 mls/hr IV ONETIME ONE Stop: 09/15/17 15:14 Last Admin: 09/15/17 13:22 Dose: 250 mls/hr Ceftriaxone Sodium/Dextrose 1 (gm/ Premix) 50 mls @ 100 mls/hr IV Q24H [facility] Stop: 09/15/17 13:44 Last Admin: 09/15/17 15:26 Dose: 100 mls/hr Ceftriaxone Sodium/Dextrose 2 (gm/ Premix) 50 mls @ 100 mls/hr IV Q24H [facility] Vancomycin HCl 1 gm/ Sodium (Chloride) 250 mls @ 166 mls/hr IV Q12H [facility] Last Admin: 09/16/17 00:45 Dose: 166 mls/hr Sodium Chloride (Normal Saline) 1,000 mls @ 999 mls/hr IV STAT ONE Stop: 09/16/17 10:19 Last Admin: 09/16/17 10:19 Dose: 999 mls/hr Thiamine HCl 100 mg/ Sodium (Chloride) 101 mls @ 202 mls/hr IV ONETIME ONE Stop: 09/16/17 11:28 Last Admin: 09/16/17 12:24 Dose: 202 mls/hr Iopamidol (Isovue-300 (61%)) 50 ml IVPUSH ONETIME ONE Stop: 09/13/17 23:55 Last Admin: 09/13/17 23:55 Dose: 50 ml Levetiracetam (Keppra) 500 mg PO BID [facility] Last Admin: 09/14/17 09:58 Dose: 500 mg Levetiracetam (Keppra) 500 mg PO ONETIME ONE Stop: 09/14/17 12:01 Last Admin: 09/14/17 12:50 Dose: 500 mg Levetiracetam (Keppra) 250 mg PO BID [facility] Last Admin: 09/15/17 20:43 Dose: 250 mg Lorazepam (Ativan) 2 mg IVPUSH ONETIME ONE Stop: 09/14/17 14:03 Last Admin: 09/14/17 14:48 Dose: 2 mg Lorazepam (Ativan) 2 mg IVPUSH ONETIME ONE Stop: 09/14/17 16:50 Last Admin: 09/14/17 17:12 Dose: 2 mg Ondansetron HCl (Zofran) 4 mg IVPUSH ONETIME ONE Stop: 09/13/17 22:28 Last Admin: 09/13/17 22:32 Dose: 4 mg Vancomycin HCl (Pharmacy To Dose - Vancomycin) 0 dose .XX ASDIRECTED [facility] - Problem List & Annotations (1) Acute kidney failure SNOMED Code(s): 73679386 Code(s): N17.9 - ACUTE KIDNEY FAILURE, UNSPECIFIED Status: Acute Current Visit: Yes (2) Rhabdomyolysis SNOMED Code(s): 655649032 Code(s): M62.82 - RHABDOMYOLYSIS Status: Acute Current Visit: Yes (3) Drug use disorder SNOMED Code(s): 02502973 Code(s): F19.90 - OTHER PSYCHOACTIVE SUBSTANCE USE, UNSPECIFIED, UNCOMPLICATED Status: Acute Current Visit: Yes (4) Restlessness and agitation SNOMED Code(s): 332075116 Code(s): R45.1 - RESTLESSNESS AND AGITATION Status: Acute Current Visit: Yes - My Orders Last 24 Hours: My Active Orders 09/15/17 21:00 levETIRAcetam [Keppra] 750 mg PO BID - Plan Plan:: Mental status normal , denies confusion ,me and resident discussed with today and she recommended a spot EEG,. Patient father is coming here tomorrow , he would like patient to have further treatment in [place] as his family is there and the closed place he can have continuous EEG can be done only in [place]. Patient was seen and examined and discussed with resident , agree with assessment and plan.
[2017-09-16] MEDS ORDERED: Thiamine 100 MG in Sodium Chloride 0.9% 100 ML IV ONE (11:27)
[2017-09-16] MEDS ORDERED: cefTRIAXone 2 GM in Premix Bag 1 BAG IV SCH (12:00)
[2017-09-16] MEDS: Folic Acid 1 MG Tab PO SCH (12:24)
--- NOTE | 2017-09-16 13:46 | US ---
EXAMINATION: Right upper quadrant ultrasound HISTORY: Elevated enzymes COMPARISON: None TECHNIQUE: Grayscale, color Doppler imaging obtained of the right upper quadrant. FINDINGS: The visualized pancreas is normal. The liver is normal in contour and echotexture without a focal hepatic mass. Gallbladder wall thickness is normal. No pericholecystic fluid or shadowing gall stones. Common bile duct measures 2 mm. Right kidney measures at least 11.7 cm [id number] without e vidence of hydronephrosis. IMPRESSION: 1. Unremarkable right upper quadrant ultrasound.
[2017-09-17] MEDS: Lactated Ringers 1,000 ML IV SCH ×2 (03:54→09:04)
[2017-09-17 05:59] LABS: CHLORIDE,CL 105 mmol/L (98-107); SODIUM,NA 144 mmol/L (136-148)
[2017-09-17] MEDS: Folic Acid 1 MG Tab PO SCH (08:56)
[2017-09-17] MEDS: levETIRAcetam 500 MG Tab PO SCH (08:56)
[2017-09-17] MEDS: Escitalopram 10 MG Tab PO SCH (08:56)
--- NOTE | 2017-09-17 21:54 | PCM.DCSUM1 ---
Discharge Summary - Hospital Course Diagnosis: Stroke: No - Discharge Data Discharge Disposition: Against Medical Advice 07 Condition: Fair - Discharge Diagnosis/Problem(s) (1) Acute kidney failure SNOMED Code(s): 10495615 ICD Code: N17.9 - ACUTE KIDNEY FAILURE, UNSPECIFIED Status: Acute (2) Rhabdomyolysis SNOMED Code(s): 830669208 ICD Code: M62.82 - RHABDOMYOLYSIS Status: Acute (3) Restlessness and agitation SNOMED Code(s): 814729026 ICD Code: R45.1 - RESTLESSNESS AND AGITATION Status: Acute (4) Seizure cerebral SNOMED Code(s): 364122789 ICD Code: I67.89 - OTHER CEREBROVASCULAR DISEASE Status: Acute - Patient Summary/Data Consults: Consultations 09/14/17 14:39 Consult to Physician [CONS] Routine - Patient Instructions Activity: As Tolerated - Discharge Plan Prescriptions/Med Rec: levETIRAcetam [Keppra Xr] 750 mg PO BID #60 tab.sr.24h Home Medications: Home Meds levETIRAcetam [Keppra Xr] 750 mg PO BID #60 tab.sr.24h 09/17/17 [Rx] Referrals: PCP,None [Primary Care Provider] - - Patient Data Vitals - Most Recent: Last Vital Signs Temp 98.6 F 09/17/17 11:50 Pulse 55 L 09/17/17 11:50 Resp 18 09/17/17 11:50 BP 129/79 09/17/17 11:50 Pulse Ox 98 09/17/17 11:50 Weight - Most Recent: 156 lb 3.2 oz I&O - Last 24 hours: Intake & Output 09/17/17 09/17/17 09/17/17 06:59 14:59 22:59 Intake Total 1000 700 Balance 1000 700 Lab Results - Last 24 hrs: Laboratory Results - last 24 hr 09/17/17 Range/Units 04:42 Sodium 144 (136-148) mmol/L Potassium 3.8 (3.5-5.1) mmol/L Chloride 105 (98-107) mmol/L Carbon Dioxide 30.3 (21.0-32.0) mmol/L BUN 9 (7.0-18.0) mg/dL Creatinine 1.1 (0.8-1.3) mg/dL Est Cr Clr Drug Dosing 103.77 mL/min Estimated GFR (MDRD) > 60.0 ml/min Glucose 93 (74-106) mg/dL Calcium 8.7 (8.5-10.1) mg/dL Total Bilirubin 0.5 (0.2-1.0) mg/dL AST 125 H (15-37) IU/L ALT 58 (14-63) IU/L Alkaline Phosphatase 42 L (46-116) U/L Creatine Kinase 5159 H (26-308) U/L Total Protein 6.3 L (6.4-8.2) g/dL Albumin 3.5 (3.4-5.0) g/dL Globulin 2.8 (2.0-3.5) g/dL Albumin/Globulin Ratio 1.2 L (1.3-2.8) MESHA Results - Last 24 hrs: Microbiology 09/14/17 12:01 Aerobic Blood Culture - Preliminary Blood - Venous - Lab Draw NO GROWTH AFTER 3 DAYS Anaerobic Blood Culture - Final 09/14/17 11:50 Aerobic Blood Culture - Preliminary Blood - Venous NO GROWTH AFTER 3 DAYS Anaerobic Blood Culture - Preliminary NO GROWTH AFTER 3 DAYS 09/15/17 11:25 Gram Stain - Final Cerebral Spinal Fluid CSF Culture - Preliminary NO GROWTH AFTER 2 DAYS Med Orders - Current: Current Medications Discontinued Medications Acetaminophen (Tylenol) 650 mg PO NOW ONE Stop: 09/13/17 22:14 Last Admin: 09/13/17 22:24 Dose: 650 mg Escitalopram Oxalate (Lexapro) 10 mg PO DAILY [facility] Last Admin: 09/17/17 08:56 Dose: 10 mg Folic Acid (Folic Acid) 1 mg PO DAILY [facility] Last Admin: 09/17/17 08:56 Dose: 1 mg Gadobutrol (Gadavist) 10 ml IVPUSH ONETIME STA Stop: 09/14/17 16:35 Last Admin: 09/14/17 16:36 Dose: 2.5 ml Sodium Chloride (Normal Saline) 1,000 mls @ 999 mls/hr IV STAT ONE Stop: 09/13/17 23:06 Last Admin: 09/13/17 22:15 Dose: 999 mls/hr Sodium Chloride (Normal Saline) 1,000 mls @ 999 mls/hr IV .Bolus ONE Stop: 09/14/17 00:20 Last Admin: 09/13/17 23:21 Dose: 999 mls/hr Magnesium Sulfate 2 gm/ Premix 50 mls @ 50 mls/hr IV ONETIME ONE Stop: 09/14/17 03:02 Last Admin: 09/14/17 02:22 Dose: 50 mls/hr Sodium Chloride (Normal Saline) 1,000 mls @ 200 mls/hr IV ASDIRECTED [facility] Last Admin: 09/14/17 02:22 Dose: 70 mls/hr Lactated Ringer's (Ringers, Lactated) 1,000 mls @ 200 mls/hr IV ASDIRECTED [facility] Last Admin: 09/17/17 09:04 Dose: 200 mls/hr Ceftriaxone Sodium/Dextrose 1 (gm/ Premix) 50 mls @ 100 mls/hr IV Q24H [facility] Last Admin: 09/15/17 12:02 Dose: 100 mls/hr Acyclovir 700 mg/ Sodium (Chloride) 114 mls @ 114 mls/hr IV Q8H [facility] Acyclovir 700 mg/ Sodium (Chloride) 114 mls @ 114 mls/hr IV Q8H [facility] Last Admin: 09/16/17 11:35 Dose: Not Given Vancomycin HCl 1,750 mg/ (Sodium Chloride) 500 mls @ 250 mls/hr IV ONETIME ONE Stop: 09/15/17 15:14 Last Admin: 09/15/17 13:22 Dose: 250 mls/hr Ceftriaxone Sodium/Dextrose 1 (gm/ Premix) 50 mls @ 100 mls/hr IV Q24H [facility] Stop: 09/15/17 13:44 Last Admin: 09/15/17 15:26 Dose: 100 mls/hr Ceftriaxone Sodium/Dextrose 2 (gm/ Premix) 50 mls @ 100 mls/hr IV Q24H [facility] Vancomycin HCl 1 gm/ Sodium (Chloride) 250 mls @ 166 mls/hr IV Q12H [facility] Last Admin: 09/16/17 00:45 Dose: 166 mls/hr Sodium Chloride (Normal Saline) 1,000 mls @ 999 mls/hr IV STAT ONE Stop: 09/16/17 10:19 Last Admin: 09/16/17 10:19 Dose: 999 mls/hr Thiamine HCl 100 mg/ Sodium (Chloride) 101 mls @ 202 mls/hr IV ONETIME ONE Stop: 09/16/17 11:28 Last Admin: 09/16/17 12:24 Dose: 202 mls/hr Iopamidol (Isovue-300 (61%)) 50 ml IVPUSH ONETIME ONE Stop: 09/13/17 23:55 Last Admin: 09/13/17 23:55 Dose: 50 ml Levetiracetam (Keppra) 500 mg PO BID [facility] Last Admin: 09/14/17 09:58 Dose: 500 mg Levetiracetam (Keppra) 500 mg PO ONETIME ONE Stop: 09/14/17 12:01 Last Admin: 09/14/17 12:50 Dose: 500 mg Levetiracetam (Keppra) 250 mg PO BID [facility] Last Admin: 09/15/17 20:43 Dose: 250 mg Levetiracetam (Keppra) 750 mg PO BID [facility] Last Admin: 09/17/17 08:56 Dose: 750 mg Lorazepam (Ativan) 2 mg IVPUSH ONETIME ONE Stop: 09/14/17 14:03 Last Admin: 09/14/17 14:48 Dose: 2 mg Lorazepam (Ativan) 2 mg IVPUSH ONETIME ONE Stop: 09/14/17 16:50 Last Admin: 09/14/17 17:12 Dose: 2 mg Lorazepam (Ativan) 2 mg IVPUSH Q4H PRN PRN Reason: agitation , restlessness Last Admin: 09/15/17 10:59 Dose: 2 mg Ondansetron HCl (Zofran) 4 mg IVPUSH ONETIME ONE Stop: 09/13/17 22:28 Last Admin: 09/13/17 22:32 Dose: 4 mg Sodium Chloride (Saline Flush) 10 ml FLUSH ASDIRECTED PRN PRN Reason: Keep Vein Open Sodium Chloride (Saline Flush) 2.5 ml FLUSH ASDIRECTED PRN PRN Reason: Keep Vein Open Vancomycin HCl (Pharmacy To Dose - Vancomycin) 0 dose .XX ASDIRECTED [facility]
--- NOTE | 2017-09-18 22:39 | PCM.SN ---
- Free Text/Narrative Note: [id number]
== END 2017-09-17 12:30 | disposition left against medical advice (07) | DRG 683 ==
LOC: MW.ED 21:46 → MW.MS 09-14 00:58 → OBSVTOIN 09-16 11:28 → MW.MS 09-16 13:15
PROVIDERS: ADMIT Internal Medicine; ATTEND Internal Medicine
PROC: 009U3ZX Drainage of Spinal Canal, Percutaneous Approach, Diagnostic (ICD-10-PCS; principal; 2017-09-15)
PROC: B01B1ZZ Fluoroscopy of Spinal Cord using Low Osmolar Contrast (ICD-10-PCS; 2017-09-15)
DX: N17.9 Acute kidney failure, unspecified (principal); M62.82 Rhabdomyolysis; E86.0 Dehydration; G40.409 Other generalized epilepsy and epileptic syndromes, not intractable, without status epilepticus; E87.5 Hyperkalemia; F41.1 Generalized anxiety disorder; F19.90 Other psychoactive substance use, unspecified, uncomplicated; F41.9 Anxiety disorder, unspecified; H57.04 Mydriasis; F90.9 Attention-deficit hyperactivity disorder, unspecified type; R91.8 Other nonspecific abnormal finding of lung field; R45.1 Restlessness and agitation; Z87.820 Personal history of traumatic brain injury
CPT/HCPCS: 36415; 62270; 70450; 70450-26; 70551; 70551-26; 74177; 74177-26; 76705; 76705-26; 76770; 76770-26; 80048; 80053; 80305; 81001; 82150; 82550; 82945; 83605; 83690; 83735; 84146; 84157; 84181; 84443; 85025; 85027; 85652; 86038; 86592; 86788; 86789; 87040; 87070; 87086; 87205; 87389; 87496; 89050; 93005; 95816; 96361; 96374; 99285-25; A9270-GY; A9585; G0480; J0133; J0696; J2060; J2405; J3370; J3411; J3475; J7030; J7040; J7050; J7120; Q9967